=== PATIENT | female | born 1985 | race Caucasian/White ===

== ENCOUNTER 2017-07-07 10:13 | Emergency (ER) | payer OTHER ==
[~2017-07-07] VITALS: Ht 142.2 cm; Wt 63.5 kg
[~2017-07-07 10:13] MED LIST: ACEBUTCAFT PO; BCPs; BIRTH CONTROL; Bactrim Ds Tab1 EACH PO; CEPH500 PO; CETI10 PO; CIPR500 PO; CLIN300 PO; CRUTCH3 USE; CYCL10 PO; Cyclobenzaprine5 MG PO; DIAZ5 PO; DIPH25 PO; GABA100; GABA300 PO; GABA600 PO; HYDACE5 PO; IBUP600 PO; IBUP800; IBUP800 PO; KETO10 PO; MULVITMINE PO; NAPR500 PO; NAPR550 PO; NITR100CA PO; Naprosyn500 MG PO; ONDA4ODT MM; OXYACE5T; OXYACE5T PO; OXYACE7.5T PO; POTCHL10ER PO; PRED10 PO; PRED20 PO; PRENZ PO; PROACE100 PO; PROM25 PO; PROM25S PR; PROP65 PO; Percocet 5-3251 EACH PO; Prednisone20 MG PO; Prednisone50 MG PO; Pyridium200 MG PO; RANI150; RANI150 PO; RXCLIN PO; RXCYCL10 PO; RXHYDMOR2 PO; RXIBUP800 PO; RXNEOPOLHC AS; RXPROACE PO; RXPROM25S PR; RXTRAM50 PO; Robaxin-750750 MG PO; Robaxin500 MG PO; SERT100 PO; SULTRIDS PO; Sprintec1 EACH PO; TRAM50 PO; TRAZ150T57 PO; TRIA80TC TOP; Veetids 500500 MG PO; YAS; YAZ BCP; YOHI5.4; Zoloft25 MG; [UNRECOGNIZED DRUG - REMARK]; [UNRECOGNIZED DRUG - REMARK]
[2017-07-07] MEDS ORDERED: BACL10 PO (11:17)
[2017-07-07] MEDS ORDERED: TOPI50 PO (11:18)
== END 2017-07-07 12:40 | disposition home or self-care (01) ==
LOC: ER 10:13
DX: F07.81 Postconcussional syndrome (principal); J45.909 Unspecified asthma, uncomplicated; Z88.1 Allergy status to other antibiotic agents; Z88.5 Allergy status to narcotic agent; Z79.899 Other long term (current) drug therapy; Z87.891 Personal history of nicotine dependence
CPT/HCPCS: 36415; 70450; 72125; 96374; 96375; 99284; J1100; J1200; J1885; J2765; L0160

== ENCOUNTER → 2017-11-04 | Outpatient (CLI) | payer OTHER ==
[~2017-11-04] MED LIST changes: +BACL10 PO; +TOPI50 PO
[2017-11-04 15:18] LABS: Source, Urine Clean Catch
[2017-11-04 17:52] LABS: Bilirubin, Urine Neg (Neg); Blood, Urine Neg (Neg); Glucose Qualitative, Urine Neg (Neg); Ketones, Urine Neg (Neg); Leukocyte Esterase, Urine 3+ (Neg); Nitrite, Urine Neg (Neg); Protein, Urine Neg (Neg); Specific Gravity, Urine 1.005 (1.003-1.022); Urobilinogen, Urine NORM (Normal)
[2017-11-04 18:16] LABS: Appearance, Urine Cloudy (Clear); Color, Urine Yellow (P-Yellow)
[2017-11-04 18:17] LABS: Bacteria Many /hpf; Red Blood Cells, Urine Not Seen /hpf (0-2); Squamous Epithelial Cells Many /hpf (Few); White Blood Cells, Urine 25-50 /hpf (0-5)
== END | disposition home or self-care (01) ==
LOC: LAB 12:28 → LAB SHORT 12:28
PROVIDERS: Obstetrics & Gynecology
DX: R82.99 Other abnormal findings in urine (principal)
CPT/HCPCS: 81001; 87086

== ENCOUNTER 2018-01-30 11:51 | Emergency (ER) | payer OTHER ==
[~2018-01-30] VITALS: Ht 160 cm; Wt 53.5 kg
[~2018-01-30 11:51] MED LIST changes: +EPIPEN 2-P0.3 MG/0.3 IM
== END 2018-01-30 13:34 | disposition home or self-care (01) ==
LOC: ER 11:51
DX: R51 Headache (principal); Z88.5 Allergy status to narcotic agent; Z88.1 Allergy status to other antibiotic agents; Z79.899 Other long term (current) drug therapy; G43.909 Migraine, unspecified, not intractable, without status migrainosus; J45.909 Unspecified asthma, uncomplicated; Z87.891 Personal history of nicotine dependence
CPT/HCPCS: 93005; 93010; 99283-25

== ENCOUNTER 2018-03-11 09:55 | Emergency (ER) | payer OTHER ==
[~2018-03-11] VITALS: Ht 160 cm; Wt 53.5 kg
[2018-03-11 10:24] LABS: Source, Urine Clean Catch
[2018-03-11 10:35] LABS: Bilirubin, Urine Neg (Neg); Blood, Urine 5+ (Neg); Glucose Qualitative, Urine Neg (Neg); Ketones, Urine Neg (Neg); Leukocyte Esterase, Urine 1+ (Neg); Nitrite, Urine Neg (Neg); Protein, Urine Neg (Neg); Urobilinogen, Urine NORM (Normal)
[2018-03-11 10:49] LABS: Appearance, Urine Hazy (Clear); Color, Urine Yellow (P-Yellow)
[2018-03-11 10:50] LABS: Red Blood Cells, Urine 25-50 /hpf (0-2)
[2018-03-11 10:51] LABS: Bacteria Rare /hpf; Squamous Epithelial Cells Mod /hpf (Few)
[2018-03-11 11:40] LABS: Calcium, Ionized (POC) 1.25 mmol/L (1.10-1.46); Chloride (POC) 114 mmol/L (98-108); Creatinine (POC) 0.6 mg/dL (0.6-1.0); Glucose (ISTAT POC) 80 mg/dL (70-99); Hemoglobin (POC) 11.2 g/dL (12.0-16.0); Potassium (POC) 3.7 mmol/L (3.5-5.5); Sodium (POC) 143 mmol/L (135-148); Total CO2 (POC) 19 mmol/L (21-32)
== END 2018-03-11 12:31 | disposition home or self-care (01) ==
LOC: ER 09:55
PROVIDERS: Physician Assistant
DX: N93.9 Abnormal uterine and vaginal bleeding, unspecified (principal); M54.5 Low back pain; J45.909 Unspecified asthma, uncomplicated; M79.7 Fibromyalgia; Z88.5 Allergy status to narcotic agent; Z88.8 Allergy status to other drugs, medicaments and biological substances; Z87.891 Personal history of nicotine dependence
CPT/HCPCS: 36415; 76830; 76856; 80047; 81001; 81025; 85014; 87086; 99284-25

== ENCOUNTER 2018-03-15 09:22 | Emergency (ER) | payer OTHER ==
[~2018-03-15] VITALS: Ht 144.8 cm; Wt 51.7 kg
[2018-03-15 10:30] LABS: Source, Urine Clean Catch
[2018-03-15 10:33] LABS: BASOPHILS ABSOLUTE AUTO 0.06 K/mm3 (0.00-0.23); BASOPHILS PERCENT AUTO 1 % (0-2); EOSINOPHILS ABSOLUTE AUTO 0.19 K/mm3 (0.00-0.68); EOSINOPHILS PERCENT AUTO 3 % (0-6); Hematocrit 36.6 % (33.0-51.0); Hemoglobin 11.4 g/dL (11.5-16.0); IMMATURE GRAN ABSOLUTE AUTO 0.02 K/mm3 (0.00-0.10); IMMATURE GRAN PERCENT AUTO 0 % (0-1); LYMPHOCYTES ABSOLUTE AUTO 2.97 K/mm3 (0.84-5.20); LYMPHOCYTES PERCENT AUTO 39 % (21-46); MONOCYTES ABSOLUTE AUTO 0.62 K/mm3 (0.16-1.47); MONOCYTES PERCENT AUTO 8 % (4-13); Mean Corpuscular HGB 28.1 pg (26.0-34.0); Mean Corpuscular HGB Conc 31.1 g/dL (31.5-36.5); Mean Corpuscular Volume 90 fL (80-100); Mean Platelet Volume 10.5 fL (9.1-12.4); NEUTROPHILS ABSOLUTE AUTO 3.68 K/mm3 (1.96-9.15); NEUTROPHILS PERCENT AUTO 49 % (41-73); Platelet Count 201 K/mm3 (150-400); RDW Coefficient Variation 14.2 % (11.7-14.2); RDW Standard Deviation 46.1 fL (35.1-46.3); Red Blood Cell Count 4.06 M/mm3 (3.80-5.20); White Blood Cell Count 7.54 K/mm3 (4.00-11.30)
[2018-03-15] MEDS ORDERED: MEDR10 PO (10:40)
[2018-03-15 10:46] LABS: Appearance, Urine Clear (Clear); Bilirubin, Urine Neg (Neg); Blood, Urine 5+ (Neg); Color, Urine Yellow (P-Yellow); Glucose Qualitative, Urine Neg (Neg); Ketones, Urine Neg (Neg); Leukocyte Esterase, Urine 2+ (Neg); Nitrite, Urine Neg (Neg); Protein, Urine Neg (Neg); Urobilinogen, Urine NORM (Normal)
[2018-03-15 10:47] LABS: Alanine Aminotransfer (ALT/SGP 15 U/L (12-78); Albumin, Blood 3.7 g/dL (3.4-5.0); Alk Phos 73 U/L (50-136); Anion Gap 8 mmol/L (6-16); Aspartate Aminotrans (AST/SGOT 12 U/L (12-37); Bilirubin, Total 0.2 mg/dL (0.1-1.0); Blood Urea Nitrogen 19 mg/dL (8-24); Bun/Creatinine Ratio 22.9 (12.0-20.0); CO2, Blood 20 mmol/L (21-32); Calcium, Blood 8.1 mg/dL (8.5-10.1); Chloride, Blood 117 mmol/L (98-108); Creatinine, Blood 0.83 mg/dL (0.40-1.00); Globulin, Blood 3.8 g/dL (2.2-4.0); Glomerular Filtration Rate >60 (60-); Glucose, Blood 76 mg/dL (70-99); Potassium, Blood 3.4 mmol/L (3.5-5.5); Sodium, Blood 145 mmol/L (136-145); Total Protein, Blood 7.5 g/dL (6.4-8.2)
[2018-03-15 11:04] LABS: Bacteria Few /hpf; Squamous Epithelial Cells Mod /hpf (Few)
== END 2018-03-15 11:00 | disposition home or self-care (01) ==
LOC: ER 09:22
PROVIDERS: Internal Medicine
DX: N93.8 Other specified abnormal uterine and vaginal bleeding (principal); Z88.1 Allergy status to other antibiotic agents; Z88.5 Allergy status to narcotic agent; G43.909 Migraine, unspecified, not intractable, without status migrainosus; J45.909 Unspecified asthma, uncomplicated
CPT/HCPCS: 36415; 80053; 81001; 81025; 83690; 85025; 87086; 99283

== ENCOUNTER → 2018-03-17 | Outpatient (CLI) | payer OTHER ==
[~2018-03-17] MED LIST changes: +MEDR10 PO
[2018-03-20 04:11] LABS: CHLAMYDIA TRACHOMATIS, NAA Negative (Negative); HPV 16 Negative (Negative); HPV 18 Negative (Negative); HPV OTHER HR TYPES Positive (Negative); NEISSERIA GONORRHOEAE, NAA Negative (Negative)
== END | disposition home or self-care (01) ==
LOC: LAB 11:11 → LAB SHORT 11:11
PROVIDERS: Obstetrics & Gynecology
DX: Z01.419 Encounter for gynecological examination (general) (routine) without abnormal findings (principal); Z11.3 Encounter for screening for infections with a predominantly sexual mode of transmission
CPT/HCPCS: 87491; 87591; 87624; 87625; G0123

== ENCOUNTER → 2018-03-25 | Outpatient (CLI) | payer OTHER | END | disposition home or self-care (01) | LOC: LAB SHORT 07:25 → PLD 07:25 | DX: N87.0 Mild cervical dysplasia (principal) | CPT/HCPCS: 88305 ==

== ENCOUNTER 2018-06-01 08:11 | Emergency (ER) | payer OTHER ==
[~2018-06-01] VITALS: Ht 142.2 cm; Wt 49.4 kg
[~2018-06-01 08:11] MED LIST changes: +PANT20 PO; +TOPI100 PO
[2018-06-01] MEDS ORDERED: OMEPRAZOLE20 MG PO (08:34)
== END 2018-06-01 09:16 | disposition home or self-care (01) ==
LOC: ER 08:11
DX: M25.511 Pain in right shoulder (principal); J45.909 Unspecified asthma, uncomplicated; G43.909 Migraine, unspecified, not intractable, without status migrainosus; M79.7 Fibromyalgia; Z88.1 Allergy status to other antibiotic agents; Z88.6 Allergy status to analgesic agent
CPT/HCPCS: 73030; 96372; 99283-25; J1885

== ENCOUNTER 2018-08-15 09:01 | Emergency (ER) | payer OTHER ==
[~2018-08-15] VITALS: Ht 142.2 cm; Wt 49.9 kg
[~2018-08-15 09:01] MED LIST changes: +OMEPRAZOLE20 MG PO
[2018-08-15] MEDS ORDERED: IBUP600 PO (11:13)
== END 2018-08-15 11:37 | disposition home or self-care (01) ==
LOC: ER 09:01
DX: M25.552 Pain in left hip (principal); Z88.1 Allergy status to other antibiotic agents; Z88.5 Allergy status to narcotic agent; Z79.899 Other long term (current) drug therapy; J45.909 Unspecified asthma, uncomplicated
CPT/HCPCS: 73502; 99283-25

== ENCOUNTER → 2018-09-16 | Outpatient (CLI) | payer OTHER | END | disposition home or self-care (01) | LOC: LAB SHORT 07:14 → PLD 07:14 | DX: R87.610 Atypical squamous cells of undetermined significance on cytologic smear of cervix (ASC-US) (principal) | CPT/HCPCS: 88305 ==

== ENCOUNTER 2018-11-04 08:33 | Emergency (ER) | payer OTHER ==
[~2018-11-04] VITALS: Ht 142.2 cm; Wt 53.1 kg
[2018-11-04] MEDS ORDERED: PANT20 PO (08:49)
[2018-11-04 08:54] LABS: Source, Urine Clean Catch
[2018-11-04 08:58] LABS: Bilirubin, Urine Neg (Neg); Blood, Urine 5+ (Neg); Glucose Qualitative, Urine Neg (Neg); Ketones, Urine Neg (Neg); Leukocyte Esterase, Urine 1+ (Neg); Nitrite, Urine Neg (Neg); Protein, Urine 2+ (Neg); Urobilinogen, Urine NORM (Normal)
[2018-11-04 09:07] LABS: Color, Urine Red (P-Yellow)
[2018-11-04 09:08] LABS: Appearance, Urine Cloudy (Clear); Bacteria Rare /hpf; Squamous Epithelial Cells Not Seen /hpf (Few); White Blood Cells, Urine Not Seen /hpf (0-5)
[2018-11-04 09:27] LABS: BASOPHILS ABSOLUTE AUTO 0.04 K/mm3 (0.00-0.23); BASOPHILS PERCENT AUTO 1 % (0-2); EOSINOPHILS ABSOLUTE AUTO 0.13 K/mm3 (0.00-0.68); EOSINOPHILS PERCENT AUTO 2 % (0-6); Hemoglobin 12.6 g/dL (11.5-16.0); IMMATURE GRAN ABSOLUTE AUTO 0.02 K/mm3 (0.00-0.10); IMMATURE GRAN PERCENT AUTO 0 % (0-1); LYMPHOCYTES ABSOLUTE AUTO 2.79 K/mm3 (0.84-5.20); LYMPHOCYTES PERCENT AUTO 38 % (21-46); MONOCYTES ABSOLUTE AUTO 0.61 K/mm3 (0.16-1.47); MONOCYTES PERCENT AUTO 8 % (4-13); Mean Corpuscular HGB 29.5 pg (26.0-34.0); Mean Corpuscular HGB Conc 32.3 g/dL (31.5-36.5); Mean Corpuscular Volume 91 fL (80-100); Mean Platelet Volume 10.4 fL (9.1-12.4); NEUTROPHILS ABSOLUTE AUTO 3.85 K/mm3 (1.96-9.15); NEUTROPHILS PERCENT AUTO 52 % (41-73); Platelet Count 201 K/mm3 (150-400); RDW Coefficient Variation 14.4 % (11.7-14.2); RDW Standard Deviation 48.1 fL (35.1-46.3); Red Blood Cell Count 4.27 M/mm3 (3.80-5.20); White Blood Cell Count 7.44 K/mm3 (4.00-11.30)
[2018-11-04 09:43] LABS: Albumin, Blood 3.6 g/dL (3.4-5.0); Albumin/Globulin Ratio 0.9 (0.8-1.8); Anion Gap 6 mmol/L (6-16); Blood Urea Nitrogen 18 mg/dL (8-24); Bun/Creatinine Ratio 23.4 (12.0-20.0); CO2, Blood 26 mmol/L (21-32); Calcium, Blood 8.8 mg/dL (8.5-10.1); Chloride, Blood 109 mmol/L (98-108); Creatinine, Blood 0.77 mg/dL (0.40-1.00); Globulin, Blood 3.9 g/dL (2.2-4.0); Glomerular Filtration Rate >60 (60-); Glucose, Blood 63 mg/dL (70-99); Potassium, Blood 3.5 mmol/L (3.5-5.5); Sodium, Blood 141 mmol/L (136-145); Total Protein, Blood 7.5 g/dL (6.4-8.2)
[2018-11-04 09:44] LABS: Alanine Aminotransfer (ALT/SGP 26 U/L (12-78); Alk Phos 68 U/L (50-136); Aspartate Aminotrans (AST/SGOT 19 U/L (12-37); Bilirubin, Total 0.2 mg/dL (0.1-1.0)
[2018-11-04] MEDS ORDERED: ONDA4ODT MM (11:28)
== END 2018-11-04 11:37 | disposition home or self-care (01) ==
LOC: ER 08:33
PROVIDERS: Emergency Medicine
DX: E16.2 Hypoglycemia, unspecified (principal); R31.9 Hematuria, unspecified; J45.909 Unspecified asthma, uncomplicated; M79.7 Fibromyalgia; Z88.5 Allergy status to narcotic agent; Z88.8 Allergy status to other drugs, medicaments and biological substances; Z79.899 Other long term (current) drug therapy
CPT/HCPCS: 36415; 80053; 81001; 81025; 82947; 85025; 87086; 93005; 93010; 96374; 96375; 99283-25; J1200; J1885; J2765

== ENCOUNTER → 2019-06-08 | Outpatient (CLI) | payer OTHER ==
[~2019-06-08] MED LIST changes: +MELO7.5 PO; +TIZANIDINE HCL4 MG PO
[2019-06-10 04:08] LABS: CHLAMYDIA TRACHOMATIS, NAA Negative (Negative); HPV 16 Negative (Negative); HPV 18 Negative (Negative); HPV OTHER HR TYPES Negative (Negative); NEISSERIA GONORRHOEAE, NAA Negative (Negative)
== END | disposition home or self-care (01) ==
LOC: LAB SHORT 09:49 → LAB 09:49
PROVIDERS: Obstetrics & Gynecology
DX: Z11.3 Encounter for screening for infections with a predominantly sexual mode of transmission (principal); Z87.42 Personal history of other diseases of the female genital tract
CPT/HCPCS: 87491; 87591; 87624; G0123

== ENCOUNTER → 2019-07-16 | Outpatient (CLI) | payer OTHER ==
[~2019-07-16] MED LIST changes: +POTA20PAC PO
[2019-07-17 14:49] LABS: Candida species (DNA Probe) Negative (NEGATIVE); G. vaginalis (DNA Probe) Positive (NEGATIVE); T. vaginalis (DNA Probe) Negative (NEGATIVE)
== END | disposition home or self-care (01) ==
LOC: LAB SHORT 10:15 → LAB 10:15
PROVIDERS: Obstetrics & Gynecology
DX: R10.2 Pelvic and perineal pain (principal)
CPT/HCPCS: 87480; 87510; 87660

== ENCOUNTER 2019-08-22 07:32 | Emergency (ER) | payer OTHER ==
[~2019-08-22] VITALS: Ht 139.7 cm; Wt 49.9 kg
[~2019-08-22 07:32] MED LIST changes: +TIZA4 PO; -TIZANIDINE HCL4 MG PO
[2019-08-22] MEDS ORDERED: MONT10T PO (07:55)
[2019-08-22] MEDS ORDERED: TRAZ50 PO (07:56)
[2019-08-22 08:29] LABS: Source, Urine Voided
[2019-08-22 08:36] LABS: BASOPHILS ABSOLUTE AUTO 0.06 K/mm3 (0.00-0.23); BASOPHILS PERCENT AUTO 1 % (0-2); EOSINOPHILS ABSOLUTE AUTO 0.19 K/mm3 (0.00-0.68); EOSINOPHILS PERCENT AUTO 2 % (0-6); Hematocrit 42.9 % (33.0-51.0); Hemoglobin 13.4 g/dL (11.5-16.0); IMMATURE GRAN ABSOLUTE AUTO 0.03 K/mm3 (0.00-0.10); IMMATURE GRAN PERCENT AUTO 0 % (0-1); LYMPHOCYTES ABSOLUTE AUTO 3.03 K/mm3 (0.84-5.20); LYMPHOCYTES PERCENT AUTO 38 % (21-46); MONOCYTES ABSOLUTE AUTO 0.72 K/mm3 (0.16-1.47); MONOCYTES PERCENT AUTO 9 % (4-13); Mean Corpuscular HGB 28.8 pg (26.0-34.0); Mean Corpuscular HGB Conc 31.2 g/dL (31.5-36.5); Mean Corpuscular Volume 92 fL (80-100); Mean Platelet Volume 10.5 fL (9.1-12.4); NEUTROPHILS ABSOLUTE AUTO 3.95 K/mm3 (1.96-9.15); NEUTROPHILS PERCENT AUTO 49 % (41-73); Platelet Count 210 K/mm3 (150-400); RDW Coefficient Variation 14.6 % (11.7-14.2); RDW Standard Deviation 49.4 fL (35.1-46.3); Red Blood Cell Count 4.65 M/mm3 (3.80-5.20); White Blood Cell Count 7.98 K/mm3 (4.00-11.30)
[2019-08-22 08:37] LABS: Bilirubin, Urine Neg (Neg); Blood, Urine 1+ (Neg); Glucose Qualitative, Urine Neg (Neg); Ketones, Urine Neg (Neg); Leukocyte Esterase, Urine 3+ (Neg); Nitrite, Urine Neg (Neg); Protein, Urine Neg (Neg); Specific Gravity, Urine 1.015 (1.003-1.022); Urobilinogen, Urine 1+ (Normal)
[2019-08-22 08:47] LABS: Appearance, Urine Hazy (Clear); Bacteria Few /hpf; Color, Urine Yellow (P-Yellow); Red Blood Cells, Urine 0-2 /hpf (0-2); Squamous Epithelial Cells Few /hpf (Few)
[2019-08-22 08:55] LABS: Beta HCG, Quantitative, Serum <1 mIU/mL (0-3)
[2019-08-22 08:56] LABS: Alanine Aminotransfer (ALT/SGP 22 U/L (12-78); Alk Phos 73 U/L (50-136); Anion Gap 7 mmol/L (6-16); Aspartate Aminotrans (AST/SGOT 13 U/L (12-37); Bilirubin, Total 0.3 mg/dL (0.1-1.0); Blood Urea Nitrogen 26 mg/dL (8-24); Bun/Creatinine Ratio 32.9 (12.0-20.0); CO2, Blood 21 mmol/L (21-32); Chloride, Blood 112 mmol/L (98-108); Creatinine, Blood 0.79 mg/dL (0.40-1.00); Globulin, Blood 4.1 g/dL (2.2-4.0); Glomerular Filtration Rate >60 (60-); Glucose, Blood 72 mg/dL (70-99); Potassium, Blood 3.7 mmol/L (3.5-5.5); Sodium, Blood 140 mmol/L (136-145); Total Protein, Blood 8.1 g/dL (6.4-8.2)
[2019-09-27] MEDS ORDERED: ERGO400 PO (14:20)
== END 2019-08-22 11:10 | disposition home or self-care (01) ==
LOC: ER 07:32
PROVIDERS: Emergency Medicine
DX: R10.2 Pelvic and perineal pain (principal); Z88.0 Allergy status to penicillin; Z88.1 Allergy status to other antibiotic agents; Z88.5 Allergy status to narcotic agent; J45.909 Unspecified asthma, uncomplicated; Z79.899 Other long term (current) drug therapy; M79.7 Fibromyalgia; Z87.891 Personal history of nicotine dependence
CPT/HCPCS: 36415; 76830; 76856; 80053; 81001; 84702; 85025; 87086; 96361; 96374; 96375; 99284-25; J1885; J2405; J7030

== ENCOUNTER 2019-10-04 07:41 | Day surgery (SDC) | payer OTHER ==
[~2019-10-04] VITALS: Ht 144.8 cm; Wt 54.3 kg
[~2019-10-04 07:41] MED LIST changes: +ERGO400 PO; +MONT10T PO; +TRAZ50 PO
--- NOTE | 2019-10-04 07:57 | NUR ---
History, Chart, Medications and Allergies reviewed before start of procedure. Amoxicillin removed from allergy list per patient request. Patient denies allergy to amoxicillin. Patient confirms NPO status and agrees with scheduled surgery. Patient States Post-Procedure ride home has been arranged with her friend, Kathleen.
--- NOTE | 2019-10-04 09:19 | NUR ---
NOSE RING TAPED AND JEWELRY WAIVER SIGNED. Surgical site prepped with 2% Chlorhexidine cloth wipe.
--- NOTE | 2019-10-04 11:47 | NUR ---
10/04/19 1147 Aurelio Carr WILSON CATH PLACED INTRA-OP PER DR. DURON
--- NOTE | 2019-10-04 19:17 | NUR ---
SHIFT SUMMARY PT HAS BEEN DROWSY BUT WOKE FOR DINNER AND DID VERY WELL. 1 OXY GIVEN FOR PAIN. NO VAG BLEEDING. STERI STRIPS WNL.
--- NOTE | 2019-10-05 01:13 | NUR ---
Aleyda has been quite painful tonight, getting only moderate relief from oxycodone, toradol and tylenol. Then, also got quite uncomfortable with heartburn after eating jello at HS. She did, however, get oob to sink and chair for over one hour around 2400. She is very worried about having no help at home for the first couple of days.
[2019-10-05 05:06] LABS: BASOPHILS ABSOLUTE AUTO 0.02 K/mm3 (0.00-0.23); BASOPHILS PERCENT AUTO 0 % (0-2); EOSINOPHILS ABSOLUTE AUTO 0.06 K/mm3 (0.00-0.68); EOSINOPHILS PERCENT AUTO 1 % (0-6); Hematocrit 33.3 % (33.0-51.0); Hemoglobin 10.5 g/dL (11.5-16.0); IMMATURE GRAN ABSOLUTE AUTO 0.03 K/mm3 (0.00-0.10); IMMATURE GRAN PERCENT AUTO 0 % (0-1); LYMPHOCYTES ABSOLUTE AUTO 2.41 K/mm3 (0.84-5.20); LYMPHOCYTES PERCENT AUTO 24 % (21-46); MONOCYTES ABSOLUTE AUTO 0.67 K/mm3 (0.16-1.47); MONOCYTES PERCENT AUTO 7 % (4-13); Mean Corpuscular HGB 29.1 pg (26.0-34.0); Mean Corpuscular HGB Conc 31.5 g/dL (31.5-36.5); Mean Corpuscular Volume 92 fL (80-100); Mean Platelet Volume 10.9 fL (9.1-12.4); NEUTROPHILS ABSOLUTE AUTO 6.93 K/mm3 (1.96-9.15); NEUTROPHILS PERCENT AUTO 69 % (41-73); Platelet Count 151 K/mm3 (150-400); RDW Coefficient Variation 13.2 % (11.7-14.2); RDW Standard Deviation 44.1 fL (35.1-46.3); Red Blood Cell Count 3.61 M/mm3 (3.80-5.20); White Blood Cell Count 10.12 K/mm3 (4.00-11.30)
--- NOTE | 2019-10-05 06:46 | NUR ---
DIE CAST TECHNICIAN SUMMARY Patient slept in 1-2 hour spurts all night. C/O pressure lower abd/pelvic area. K pad and IV toradol seemed to do much better for her than the oxycodone. Hope catheter pulled at 0500, voided 200ml clear urine immediately, and ambulated and sat up in chair. Very pleased that she is feeling so much better since getting her hope out. Looking forward to possible discharge later today.
[2019-10-05] MEDS ORDERED: ACET325 PO (08:50)
[2019-10-05] MEDS ORDERED: IBUP800 PO (08:51)
[2019-10-05] MEDS ORDERED: DOCU100 PO (08:51)
[2019-10-05] MEDS ORDERED: OXYC5 PO (08:52)
--- NOTE | 2019-10-05 15:51 | NUR ---
DISCHARGE PT ESCORTED OUT VIA W/C. EATING/DRINKING/VOIDING WELL. PASSING GAS. PAIN MANAGED. PLEASANT AND SOFT SPOKEN.
== END 2019-10-05 15:51 | disposition home or self-care (01) ==
LOC: ORSCMMR 07:41 → ORD 09:00 → ORSCMMR 09:00 → SURS 11:58 → ORSCMMR 11:58 → SURS 10-05 15:51 → ORSCMMR 10-05 15:51
PROVIDERS: Obstetrics & Gynecology
PROC: 0U5F4ZZ Destruction of Cul-de-sac, Percutaneous Endoscopic Approach (ICD-10-PCS; principal; 2019-10-04 09:00)
PROC: 0UT0FZZ Resection of Right Ovary, Via Natural or Artificial Opening With Percutaneous Endoscopic Assistance (ICD-10-PCS; principal; 2019-10-04 09:00)
PROC: 0UT9FZZ Resection of Uterus, Via Natural or Artificial Opening With Percutaneous Endoscopic Assistance (ICD-10-PCS; principal; 2019-10-04 09:00)
DX: N80.3 Endometriosis of pelvic peritoneum (principal); R87.611 Atypical squamous cells cannot exclude high grade squamous intraepithelial lesion on cytologic smear of cervix (ASC-H); R10.2 Pelvic and perineal pain; N94.6 Dysmenorrhea, unspecified; N83.291 Other ovarian cyst, right side; N72 Inflammatory disease of cervix uteri; K21.9 Gastro-esophageal reflux disease without esophagitis; M79.7 Fibromyalgia; Z79.899 Other long term (current) drug therapy
CPT/HCPCS: 36415; 85025; 88307; A9270; C9113; J0171; J0690; J1100; J1170; J1885; J2250; J2405; J2704; J2765; J3010; J7120; U0002

== ENCOUNTER 2021-02-14 09:16 | Day surgery (SDC) | payer OTHER ==
[~2021-02-14] VITALS: Ht 144.8 cm; Wt 65.1 kg
[~2021-02-14 09:16] MED LIST changes: +ACET325 PO; +CITALOPRAM HBR10 MG PO; +DOCU100 PO; +ESCI20 PO; +OXYC5 PO
--- NOTE | 2021-02-14 10:01 | NUR ---
Ambulatory in Day Surgery. History, Chart, Medications and Allergies reviewed before start of procedure. Lungs clear T/O to Auscultation. Patient confirms NPO status and agrees with scheduled surgery. Pre-Op teaching done. Pt verbalizes understanding. Patient States Post-Procedure ride home has been arranged WITH PT'S DAD.
--- NOTE | 2021-02-14 12:12 | NUR ---
REPORT GIVEN TO Bjorn ESCALANTE.
--- NOTE | 2021-02-14 13:15 | NUR ---
Patient up to Ambulate independently. Gait steady. Discharge instructions reviewed with patient. Patient verbalizes understanding. Copy given to patient to take home. Dressing to procedure site clean, dry, intact with SMALL AMOUNT OF drainage, NOT ANYTHING NEW SINCE ASSUMING CARE, swelling, erythema or bruising noted. Patient States Post-Procedure ride home has been arranged. PT'S DAD IN UNIT. Discharged via wheelchair to private car for ride home.
== END 2021-02-14 13:15 | disposition home or self-care (01) ==
LOC: ORSCMMR 09:16 → ORD 10:30 → ORSCMMR 13:15
PROVIDERS: Obstetrics & Gynecology
PROC: 0UB14ZZ Excision of Left Ovary, Percutaneous Endoscopic Approach (ICD-10-PCS; principal; 2021-02-14 10:30)
DX: N80.9 Endometriosis, unspecified (principal); N83.202 Unspecified ovarian cyst, left side; K21.9 Gastro-esophageal reflux disease without esophagitis; F41.8 Other specified anxiety disorders; M79.7 Fibromyalgia; E66.9 Obesity, unspecified; Z68.32 Body mass index [BMI] 32.0-32.9, adult; Z79.899 Other long term (current) drug therapy
CPT/HCPCS: 88305; A9270; J1100; J1885; J2250; J2405; J2704; J3010; J7120

== ENCOUNTER 2021-08-13 02:59 | Emergency (ER) | payer OTHER ==
[~2021-08-13] VITALS: Ht 144.8 cm; Wt 59.0 kg
[2021-08-13 04:00] LABS: Source, Urine Voided
[2021-08-13 04:16] LABS: Bilirubin, Urine Neg (Neg); Blood, Urine Neg (Neg); Glucose Qualitative, Urine Neg (Neg); Ketones, Urine Neg (Neg); Leukocyte Esterase, Urine Neg (Neg); Nitrite, Urine Neg (Neg); Protein, Urine 1+ (Neg); Urobilinogen, Urine NORM (Normal)
[2021-08-13 04:22] LABS: Appearance, Urine Clear (Clear); Color, Urine Yellow (P-Yellow)
[2021-08-13] MEDS ORDERED: BACL10 PO (07:19)
[2021-08-13] MEDS ORDERED: CLIMARA1 EACH TOP (07:19)
[2021-08-13] MEDS ORDERED: HYDPAM50 PO (07:20)
[2021-08-13 08:02] LABS: Influenza A, PCR NEGATIVE (NEGATIVE); Influenza B, PCR NEGATIVE (NEGATIVE); Resp Syncytial Virus, PCR NEGATIVE (NEGATIVE); SARS-Cov-2 (COVID-19) PCR, MMC NEGATIVE (NEGATIVE)
[2021-08-13] MEDS ORDERED: IBUP800 PO (08:49)
[2021-08-13] MEDS ORDERED: ONDA4ODT MM (08:49)
== END 2021-08-13 09:01 | disposition home or self-care (01) ==
LOC: ER 02:59
PROVIDERS: Emergency Medicine; Student in an Organized Health Care Education/Training Program
DX: R10.9 Unspecified abdominal pain (principal); R11.2 Nausea with vomiting, unspecified; R42 Dizziness and giddiness; R30.0 Dysuria; R39.15 Urgency of urination; J45.909 Unspecified asthma, uncomplicated; Z79.899 Other long term (current) drug therapy; Z88.1 Allergy status to other antibiotic agents; Z20.822 Contact with and (suspected) exposure to COVID-19
CPT/HCPCS: 0241U; 82947; 93005; 93010; A9270

== ENCOUNTER → 2021-08-16 | Outpatient (CLI) | payer OTHER ==
[~2021-08-16] MED LIST changes: +CLIMARA1 EACH TOP; +HYDPAM50 PO
== END | disposition home or self-care (01) ==
LOC: LAB 11:55 → LAB SHORT 11:55
DX: J36 Peritonsillar abscess (principal)
CPT/HCPCS: 87081; 87147

== ENCOUNTER 2021-10-05 09:34 | Emergency (ER) | payer OTHER ==
[~2021-10-05] VITALS: Ht 142.2 cm; Wt 59.0 kg
[2021-10-05 10:29] LABS: BASOPHILS ABSOLUTE AUTO 0.04 K/mm3 (0.00-0.23); BASOPHILS PERCENT AUTO 0 % (0-2); EOSINOPHILS ABSOLUTE AUTO 0.12 K/mm3 (0.00-0.68); EOSINOPHILS PERCENT AUTO 1 % (0-6); Hematocrit 38.6 % (33.0-51.0); IMMATURE GRAN ABSOLUTE AUTO 0.03 K/mm3 (0.00-0.10); IMMATURE GRAN PERCENT AUTO 0 % (0-1); LYMPHOCYTES ABSOLUTE AUTO 2.31 K/mm3 (0.84-5.20); LYMPHOCYTES PERCENT AUTO 24 % (21-46); MONOCYTES ABSOLUTE AUTO 0.55 K/mm3 (0.16-1.47); MONOCYTES PERCENT AUTO 6 % (4-13); Mean Corpuscular HGB 30.9 pg (26.0-34.0); Mean Corpuscular HGB Conc 33.7 g/dL (31.5-36.5); Mean Corpuscular Volume 92 fL (80-100); Mean Platelet Volume 10.4 fL (9.1-12.4); NEUTROPHILS ABSOLUTE AUTO 6.63 K/mm3 (1.96-9.15); NEUTROPHILS PERCENT AUTO 69 % (41-73); Platelet Count 226 K/mm3 (150-400); RDW Standard Deviation 43.1 fL (35.1-46.3); Red Blood Cell Count 4.21 M/mm3 (3.80-5.20); White Blood Cell Count 9.68 K/mm3 (4.00-11.30)
[2021-10-05 10:55] LABS: Albumin, Blood 3.5 g/dL (3.4-5.0); Albumin/Globulin Ratio 0.9 (0.8-1.8); Bilirubin, Total 0.4 mg/dL (0.1-1.0); Calcium, Blood 8.6 mg/dL (8.5-10.1); Creatinine, Blood 0.66 mg/dL (0.40-1.00); Globulin, Blood 3.8 g/dL (2.2-4.0); Potassium, Blood 3.3 mmol/L (3.5-5.5); Total Protein, Blood 7.3 g/dL (6.4-8.2)
== END 2021-10-05 16:03 | disposition home or self-care (01) ==
LOC: ER 09:34
PROVIDERS: Physician Assistant
DX: R07.89 Other chest pain (principal); Z88.1 Allergy status to other antibiotic agents; Z79.899 Other long term (current) drug therapy
CPT/HCPCS: 80053; 84484; 85025; 93005; 93010

== ENCOUNTER 2022-06-20 14:17 | Emergency (ER) | payer OTHER ==
[~2022-06-20] VITALS: Ht 165.1 cm; Wt 72.6 kg
[2022-06-20 14:58] VITALS: BP 127/84
[2022-06-20 15:13] LABS: BASOPHILS ABSOLUTE AUTO 0.04 K/mm3 (0.00-0.23); BASOPHILS PERCENT AUTO 1 % (0-2); EOSINOPHILS ABSOLUTE AUTO 0.23 K/mm3 (0.00-0.68); EOSINOPHILS PERCENT AUTO 3 % (0-6); Hematocrit 38.7 % (33.0-51.0); IMMATURE GRAN ABSOLUTE AUTO 0.02 K/mm3 (0.00-0.10); IMMATURE GRAN PERCENT AUTO 0 % (0-1); LYMPHOCYTES ABSOLUTE AUTO 3.18 K/mm3 (0.84-5.20); LYMPHOCYTES PERCENT AUTO 39 % (21-46); MONOCYTES ABSOLUTE AUTO 0.59 K/mm3 (0.16-1.47); MONOCYTES PERCENT AUTO 7 % (4-13); Mean Corpuscular HGB 30.4 pg (26.0-34.0); Mean Corpuscular HGB Conc 33.6 g/dL (31.5-36.5); Mean Corpuscular Volume 91 fL (80-100); NEUTROPHILS ABSOLUTE AUTO 4.13 K/mm3 (1.96-9.15); NEUTROPHILS PERCENT AUTO 51 % (41-73); Platelet Count 198 K/mm3 (150-400); RDW Coefficient Variation 12.9 % (11.7-14.2); RDW Standard Deviation 42.1 fL (35.1-46.3); Red Blood Cell Count 4.27 M/mm3 (3.80-5.20); White Blood Cell Count 8.19 K/mm3 (4.00-11.30)
[2022-06-20 15:46] LABS: Albumin, Blood 3.4 g/dL (3.4-5.0); Albumin/Globulin Ratio 0.9 (0.8-1.8); Bilirubin, Total 0.5 mg/dL (0.1-1.0); Bun/Creatinine Ratio 14.4 (12.0-20.0); Calcium, Blood 8.5 mg/dL (8.5-10.1); Creatinine, Blood 0.84 mg/dL (0.40-1.00); Globulin, Blood 3.7 g/dL (2.2-4.0); Potassium, Blood 3.5 mmol/L (3.5-5.5); Total Protein, Blood 7.1 g/dL (6.4-8.2)
[2022-06-20] MEDS ORDERED: CYCL10 PO (16:35)
== END 2022-06-20 16:49 | disposition home or self-care (01) ==
LOC: ER 14:17
PROVIDERS: Physician Assistant
DX: M54.50 Low back pain, unspecified (principal); G89.29 Other chronic pain; Z88.1 Allergy status to other antibiotic agents; Z79.899 Other long term (current) drug therapy; G43.909 Migraine, unspecified, not intractable, without status migrainosus; J45.909 Unspecified asthma, uncomplicated
CPT/HCPCS: 80053; 85025; 96374; 99283-25; A9270; J1885

== ENCOUNTER 2022-06-28 03:46 | Emergency (ER) | payer OTHER ==
[~2022-06-28] VITALS: Ht 144.8 cm; Wt 63.5 kg
[2022-06-28 04:23] LABS: BASOPHILS ABSOLUTE AUTO 0.04 K/mm3 (0.00-0.23); BASOPHILS PERCENT AUTO 0 % (0-2); EOSINOPHILS ABSOLUTE AUTO 0.13 K/mm3 (0.00-0.68); EOSINOPHILS PERCENT AUTO 1 % (0-6); Hematocrit 42.3 % (33.0-51.0); Hemoglobin 14.2 g/dL (11.5-16.0); IMMATURE GRAN ABSOLUTE AUTO 0.06 K/mm3 (0.00-0.10); IMMATURE GRAN PERCENT AUTO 1 % (0-1); LYMPHOCYTES ABSOLUTE AUTO 1.61 K/mm3 (0.84-5.20); LYMPHOCYTES PERCENT AUTO 16 % (21-46); MONOCYTES ABSOLUTE AUTO 0.68 K/mm3 (0.16-1.47); MONOCYTES PERCENT AUTO 7 % (4-13); Mean Corpuscular HGB 30.3 pg (26.0-34.0); Mean Corpuscular HGB Conc 33.6 g/dL (31.5-36.5); Mean Corpuscular Volume 90 fL (80-100); Mean Platelet Volume 10.1 fL (9.1-12.4); NEUTROPHILS ABSOLUTE AUTO 7.76 K/mm3 (1.96-9.15); NEUTROPHILS PERCENT AUTO 75 % (41-73); Platelet Count 219 K/mm3 (150-400); RDW Coefficient Variation 13.1 % (11.7-14.2); RDW Standard Deviation 42.9 fL (35.1-46.3); Red Blood Cell Count 4.68 M/mm3 (3.80-5.20); White Blood Cell Count 10.28 K/mm3 (4.00-11.30)
[2022-06-28 04:43] LABS: Albumin, Blood 3.8 g/dL (3.4-5.0); Albumin/Globulin Ratio 0.9 (0.8-1.8); Bilirubin, Total 0.5 mg/dL (0.1-1.0); Bun/Creatinine Ratio 18.7 (12.0-20.0); Calcium, Blood 9.3 mg/dL (8.5-10.1); Creatinine, Blood 0.75 mg/dL (0.40-1.00); Globulin, Blood 4.1 g/dL (2.2-4.0); Potassium, Blood 3.8 mmol/L (3.5-5.5); Total Protein, Blood 7.9 g/dL (6.4-8.2)
[2022-06-28 06:12] VITALS: BP 110/65
[2022-06-28] MEDS ORDERED: ONDA4ODT MM (06:37)
== END 2022-06-28 06:49 | disposition home or self-care (01) ==
LOC: ER 03:46
PROVIDERS: Student in an Organized Health Care Education/Training Program
DX: R07.89 Other chest pain (principal); R11.2 Nausea with vomiting, unspecified; J45.909 Unspecified asthma, uncomplicated; Z88.1 Allergy status to other antibiotic agents; Z79.899 Other long term (current) drug therapy
CPT/HCPCS: 71046; 80053; 83690; 84484; 85025; 93005; 93010; J1885

== ENCOUNTER 2022-07-26 06:46 | Emergency (ER) | payer OTHER ==
[~2022-07-26] VITALS: Ht 142.2 cm; Wt 63.5 kg
[2022-07-26 07:23] LABS: BASOPHILS ABSOLUTE AUTO 0.04 K/mm3 (0.00-0.23); BASOPHILS PERCENT AUTO 1 % (0-2); EOSINOPHILS ABSOLUTE AUTO 0.22 K/mm3 (0.00-0.68); EOSINOPHILS PERCENT AUTO 3 % (0-6); Hematocrit 38.9 % (33.0-51.0); Hemoglobin 13.2 g/dL (11.5-16.0); IMMATURE GRAN ABSOLUTE AUTO 0.02 K/mm3 (0.00-0.10); IMMATURE GRAN PERCENT AUTO 0 % (0-1); LYMPHOCYTES ABSOLUTE AUTO 2.42 K/mm3 (0.84-5.20); LYMPHOCYTES PERCENT AUTO 35 % (21-46); MONOCYTES ABSOLUTE AUTO 0.57 K/mm3 (0.16-1.47); MONOCYTES PERCENT AUTO 8 % (4-13); Mean Corpuscular HGB 30.8 pg (26.0-34.0); Mean Corpuscular HGB Conc 33.9 g/dL (31.5-36.5); Mean Corpuscular Volume 91 fL (80-100); NEUTROPHILS PERCENT AUTO 53 % (41-73); Platelet Count 219 K/mm3 (150-400); RDW Coefficient Variation 12.6 % (11.7-14.2); RDW Standard Deviation 41.6 fL (35.1-46.3); Red Blood Cell Count 4.29 M/mm3 (3.80-5.20); White Blood Cell Count 6.97 K/mm3 (4.00-11.30)
[2022-07-26 07:44] LABS: Albumin, Blood 3.5 g/dL (3.4-5.0); Albumin/Globulin Ratio 0.9 (0.8-1.8); Bilirubin, Total 0.4 mg/dL (0.1-1.0); Bun/Creatinine Ratio 18.1 (12.0-20.0); Calcium, Blood 8.5 mg/dL (8.5-10.1); Creatinine, Blood 0.72 mg/dL (0.40-1.00); Globulin, Blood 3.8 g/dL (2.2-4.0); Potassium, Blood 3.6 mmol/L (3.5-5.5); Total Protein, Blood 7.3 g/dL (6.4-8.2)
[2022-07-26 08:44] VITALS: BP 112/60
== END 2022-07-26 08:50 | disposition home or self-care (01) ==
LOC: ER 06:46
PROVIDERS: Emergency Medicine
DX: M25.572 Pain in left ankle and joints of left foot (principal); M25.571 Pain in right ankle and joints of right foot; J45.909 Unspecified asthma, uncomplicated; Z88.1 Allergy status to other antibiotic agents; Z79.899 Other long term (current) drug therapy
CPT/HCPCS: 80053; 84703; 85025; 93970; 99284-25; A9270

== ENCOUNTER → 2023-03-24 | Outpatient (CLI) | payer OTHER ==
[2023-03-24 19:42] LABS: BASOPHILS ABSOLUTE AUTO 0.04 K/mm3 (0.00-0.23); BASOPHILS PERCENT AUTO 1 % (0-2); EOSINOPHILS ABSOLUTE AUTO 0.11 K/mm3 (0.00-0.68); EOSINOPHILS PERCENT AUTO 1 % (0-6); Hematocrit 47.1 % (33.0-51.0); Hemoglobin 16.5 g/dL (11.5-16.0); IMMATURE GRAN ABSOLUTE AUTO 0.02 K/mm3 (0.00-0.10); IMMATURE GRAN PERCENT AUTO 0 % (0-1); LYMPHOCYTES ABSOLUTE AUTO 2.81 K/mm3 (0.84-5.20); LYMPHOCYTES PERCENT AUTO 36 % (21-46); MONOCYTES ABSOLUTE AUTO 0.45 K/mm3 (0.16-1.47); MONOCYTES PERCENT AUTO 6 % (4-13); Mean Corpuscular HGB 30.2 pg (26.0-34.0); Mean Corpuscular Volume 86 fL (80-100); Mean Platelet Volume 9.9 fL (9.1-12.4); NEUTROPHILS ABSOLUTE AUTO 4.41 K/mm3 (1.96-9.15); NEUTROPHILS PERCENT AUTO 56 % (41-73); Platelet Count 313 K/mm3 (150-400); RDW Standard Deviation 40.1 fL (35.1-46.3); Red Blood Cell Count 5.46 M/mm3 (3.80-5.20); White Blood Cell Count 7.84 K/mm3 (4.00-11.30)
[2023-03-24 20:11] LABS: Albumin, Blood 4.2 g/dL (3.4-5.0); Albumin/Globulin Ratio 0.9 (0.8-1.8); Bilirubin, Total 0.6 mg/dL (0.1-1.0); Bun/Creatinine Ratio 15.7 (12.0-20.0); Calcium, Blood 9.9 mg/dL (8.5-10.1); Creatinine, Blood 0.89 mg/dL (0.40-1.00); Globulin, Blood 4.7 g/dL (2.2-4.0); Magnesium, Blood 2.1 mg/dL (1.6-2.4); Potassium, Blood 3.2 mmol/L (3.5-5.5); Total Protein, Blood 8.9 g/dL (6.4-8.2)
== END | disposition home or self-care (01) ==
LOC: LAB SHORT 18:58 → LAB 18:58
PROVIDERS: Physician Assistant Medical
DX: R06.00 Dyspnea, unspecified (principal); R00.2 Palpitations
CPT/HCPCS: 80053; 83735; 85025

== ENCOUNTER 2023-05-17 12:32 | Emergency (ER) | payer OTHER ==
[~2023-05-17] VITALS: Ht 144.8 cm; Wt 63.5 kg
[~2023-05-17 12:32] MED LIST changes: +BENZ100A PO
[2023-05-17 12:39] VITALS: BP 109/69
[2023-05-17] MEDS ORDERED: RX Prepack Albuterol 1 PREPACK/6.7 GM INH UD ONE (14:30)
== END 2023-05-17 14:40 | disposition home or self-care (01) ==
LOC: ER 12:32
DX: R05.3 Chronic cough (principal); R09.82 Postnasal drip; Z88.1 Allergy status to other antibiotic agents; Z79.899 Other long term (current) drug therapy; G43.909 Migraine, unspecified, not intractable, without status migrainosus; J45.909 Unspecified asthma, uncomplicated
CPT/HCPCS: 71046; 99283-25; A9270

== ENCOUNTER → 2023-07-17 | Outpatient (CLI) | payer OTHER ==
[2023-07-17 15:53] LABS: Bacterial Vaginosis PCR Negative (NEGATIVE); Candida Group, PCR NOT DETECTED (NOT DETECT)
[2023-07-17 15:54] LABS: Candida glabrata-krusei, PCR DETECTED (NOT DETECT)
[2023-07-19 07:24] LABS: APTIMA MEDIA TYPE Unisex Swab; C. TRACHOMATIS BY TMA Negative (Negative); N. GONORRHOEAE BY TMA Negative (Negative); SPECIMEN SOURCE Vaginal
== END ==
LOC: LAB 13:46 → LAB SHORT 13:46
PROVIDERS: Advanced Practice Midwife
DX: N76.0 Acute vaginitis (principal); Z11.3 Encounter for screening for infections with a predominantly sexual mode of transmission
CPT/HCPCS: 87481; 87491; 87591; 87661; 87801

== ENCOUNTER 2023-08-07 15:11 | Emergency (ER) | payer OTHER ==
[~2023-08-07] VITALS: Ht 144.8 cm; Wt 66.7 kg
[2023-08-07] MEDS ORDERED: NS 1,000 ML IV SCH (15:20)
[2023-08-07 15:39] LABS: BASOPHILS ABSOLUTE AUTO 0.03 K/mm3 (0.00-0.23); BASOPHILS PERCENT AUTO 0 % (0-2); EOSINOPHILS ABSOLUTE AUTO 0.06 K/mm3 (0.00-0.68); EOSINOPHILS PERCENT AUTO 1 % (0-6); Hematocrit 43.8 % (33.0-51.0); IMMATURE GRAN ABSOLUTE AUTO 0.02 K/mm3 (0.00-0.10); IMMATURE GRAN PERCENT AUTO 0 % (0-1); LYMPHOCYTES ABSOLUTE AUTO 2.22 K/mm3 (0.84-5.20); LYMPHOCYTES PERCENT AUTO 30 % (21-46); MONOCYTES ABSOLUTE AUTO 0.43 K/mm3 (0.16-1.47); MONOCYTES PERCENT AUTO 6 % (4-13); Mean Corpuscular HGB 29.9 pg (26.0-34.0); Mean Corpuscular HGB Conc 34.2 g/dL (31.5-36.5); Mean Corpuscular Volume 87 fL (80-100); Mean Platelet Volume 10.2 fL (9.1-12.4); NEUTROPHILS ABSOLUTE AUTO 4.72 K/mm3 (1.96-9.15); NEUTROPHILS PERCENT AUTO 63 % (41-73); Platelet Count 256 K/mm3 (150-400); RDW Coefficient Variation 13.2 % (11.7-14.2); RDW Standard Deviation 42.2 fL (35.1-46.3); Red Blood Cell Count 5.02 M/mm3 (3.80-5.20); White Blood Cell Count 7.48 K/mm3 (4.00-11.30)
[2023-08-07 15:56] LABS: Albumin, Blood 3.9 g/dL (3.4-5.0); Albumin/Globulin Ratio 0.9 (0.8-1.8); Bilirubin, Total 0.6 mg/dL (0.1-1.0); Bun/Creatinine Ratio 19.4 (12.0-20.0); Calcium, Blood 9.4 mg/dL (8.5-10.1); Creatinine, Blood 0.88 mg/dL (0.40-1.00); Globulin, Blood 4.2 g/dL (2.2-4.0); Magnesium, Blood 2.2 mg/dL (1.6-2.4); Potassium, Blood 3.4 mmol/L (3.5-5.5); Total Protein, Blood 8.1 g/dL (6.4-8.2)
[2023-08-07] MEDS ORDERED: Ondansetron HCl 2 MG / ML 2ML Vial IV ONE (16:05)
[2023-08-07 18:22] LABS: Source, Urine Clean Catch
[2023-08-07 18:25] LABS: Appearance, Urine Clear (Clear); Bilirubin, Urine Neg (Neg); Blood, Urine Neg (Neg); Glucose Qualitative, Urine Neg (Neg); Ketones, Urine 2+ (Neg); Leukocyte Esterase, Urine Neg (Neg); Nitrite, Urine Neg (Neg); Protein, Urine Neg (Neg); Specific Gravity, Urine 1.005 (1.003-1.022); Urobilinogen, Urine NORM (Normal)
[2023-08-07 18:30] LABS: Color, Urine Pale Yellow (P-Yellow)
[2023-08-07] MEDS ORDERED: RX Prepack 2 Tabs Ondansetron ODT 4MG UD ONE (18:50)
[2023-08-07] MEDS ORDERED: ONDA4 PO (18:51)
[2023-08-07 19:10] VITALS: BP 118/89
== END 2023-08-07 19:11 | disposition home or self-care (01) ==
LOC: ER 15:11
PROVIDERS: Physician Assistant; Student in an Organized Health Care Education/Training Program
DX: K52.9 Noninfective gastroenteritis and colitis, unspecified (principal); J45.909 Unspecified asthma, uncomplicated; G43.909 Migraine, unspecified, not intractable, without status migrainosus; Z79.899 Other long term (current) drug therapy; Z79.818 Long term (current) use of other agents affecting estrogen receptors and estrogen levels; Z88.1 Allergy status to other antibiotic agents
CPT/HCPCS: 74177; 80053; 81003; 83690; 83735; 85025; 96361; 96374-59; 99284-25; A9270; J2405; J7030; Q9967

== ENCOUNTER 2023-09-27 19:34 | Emergency (ER) | payer OTHER ==
[~2023-09-27] VITALS: Ht 144.8 cm; Wt 65.8 kg
[~2023-09-27 19:34] MED LIST changes: +ONDA4 PO
[2023-09-27 20:08] VITALS: BP 97/69
[2023-09-27] MEDS ORDERED: CEFUROXIME IM ONE (20:10)
[2023-09-27] MEDS ORDERED: CEFU500T30 PO (20:12)
[2023-09-27] MEDS ORDERED: ONDA4 PO (20:12)
[2023-09-27] MEDS ORDERED: Cefuroxime Axetil 250 MG Tab PO ONE (20:50)
[2023-09-30] MEDS ORDERED: SULTRIDS PO (21:48)
== END 2023-09-27 21:48 | disposition home or self-care (01) ==
LOC: ER 19:34
DX: S80.211A Abrasion, right knee, initial encounter (principal); L03.115 Cellulitis of right lower limb; J45.909 Unspecified asthma, uncomplicated; G43.909 Migraine, unspecified, not intractable, without status migrainosus; W19.XXXA Unspecified fall, initial encounter; Z79.899 Other long term (current) drug therapy; Z88.1 Allergy status to other antibiotic agents
CPT/HCPCS: 93005; 93010; 99283-25; A9270; J0697

== ENCOUNTER → 2023-10-16 | Outpatient (CLI) | payer OTHER ==
[~2023-10-16] MED LIST changes: +BACITRACIN ZIN1 EAC1 TOP; +CEFU500T30 PO
[2023-10-16 15:24] LABS: Source, Urine Clean Catch
[2023-10-16 17:31] LABS: Appearance, Urine Hazy (Clear); Blood, Urine Neg (Neg); Color, Urine Yellow (P-Yellow); Glucose Qualitative, Urine Neg (Neg); Ketones, Urine Neg (Neg); Leukocyte Esterase, Urine 1+ (Neg); Nitrite, Urine Neg (Neg); Protein, Urine 2+ (Neg); Urobilinogen, Urine 1+ (Normal)
[2023-10-16 17:44] LABS: Bilirubin, Urine 1+ (Neg)
[2023-10-16 17:45] LABS: Bacteria Mod /hpf; Calcium Oxalate Crystals Many /hpf; Mucus Mod (0-Heavy); Red Blood Cells, Urine 0-2 /hpf (0-2); Squamous Epithelial Cells Few /hpf (Few)
[2023-10-16 19:10] LABS: Bacterial Vaginosis PCR Negative (NEGATIVE); Candida glabrata-krusei, PCR NOT DETECTED (NOT DETECT)
[2023-10-16 19:40] LABS: Candida Group, PCR DETECTED (NOT DETECT)
== END ==
LOC: LAB 15:22 → LAB SHORT 15:22
PROVIDERS: Nurse Practitioner Family
DX: R10.84 Generalized abdominal pain (principal)
CPT/HCPCS: 81001; 87086; 87481; 87661; 87801

== ENCOUNTER 2023-11-21 19:56 | Emergency (ER) | payer OTHER ==
[~2023-11-21] VITALS: Ht 144.8 cm; Wt 63.5 kg
[~2023-11-21 19:56] MED LIST changes: +MIRALAX17 GM PO
[2023-11-21 21:00] LABS: Albumin, Blood 3.8 g/dL (3.4-5.0); Bilirubin, Total 0.6 mg/dL (0.1-1.0); Bun/Creatinine Ratio 17.8 (12.0-20.0); Calcium, Blood 9.7 mg/dL (8.5-10.1); Creatinine, Blood 0.9 mg/dL (0.40-1.00); Globulin, Blood 3.8 g/dL (2.2-4.0); Potassium, Blood 3.5 mmol/L (3.5-5.5); Total Protein, Blood 7.6 g/dL (6.4-8.2)
[2023-11-21] MEDS ORDERED: CLIMARA1 EACH TOP (21:07)
[2023-11-21 21:09] LABS: BASOPHILS ABSOLUTE AUTO 0.06 K/mm3 (0.00-0.23); BASOPHILS PERCENT AUTO 1 % (0-2); EOSINOPHILS ABSOLUTE AUTO 0.09 K/mm3 (0.00-0.68); EOSINOPHILS PERCENT AUTO 1 % (0-6); Hematocrit 41.6 % (33.0-51.0); Hemoglobin 14.1 g/dL (11.5-16.0); IMMATURE GRAN ABSOLUTE AUTO 0.01 K/mm3 (0.00-0.10); IMMATURE GRAN PERCENT AUTO 0 % (0-1); LYMPHOCYTES PERCENT AUTO 34 % (21-46); MONOCYTES ABSOLUTE AUTO 0.52 K/mm3 (0.16-1.47); MONOCYTES PERCENT AUTO 8 % (4-13); Mean Corpuscular HGB Conc 33.9 g/dL (31.5-36.5); Mean Corpuscular Volume 89 fL (80-100); Mean Platelet Volume 10.3 fL (9.1-12.4); NEUTROPHILS ABSOLUTE AUTO 3.73 K/mm3 (1.96-9.15); NEUTROPHILS PERCENT AUTO 56 % (41-73); Platelet Count 222 K/mm3 (150-400); RDW Coefficient Variation 13.4 % (11.7-14.2); RDW Standard Deviation 43.9 fL (35.1-46.3); White Blood Cell Count 6.71 K/mm3 (4.00-11.30)
[2023-11-21] MEDS ORDERED: Sucralfate 1000MG / 10ML UD BTL PO ONE (21:15)
[2023-11-21 22:37] VITALS: BP 109/74
[2023-11-21] MEDS ORDERED: Ondansetron HCl 2 MG / ML 2ML Vial IV ONE (23:10)
== END 2023-11-21 23:16 | disposition home or self-care (01) ==
LOC: ER 19:56
PROVIDERS: Physician Assistant
DX: R10.12 Left upper quadrant pain (principal); R04.2 Hemoptysis; M79.10 Myalgia, unspecified site; R21 Rash and other nonspecific skin eruption; Z79.899 Other long term (current) drug therapy; Z88.1 Allergy status to other antibiotic agents; J45.909 Unspecified asthma, uncomplicated
CPT/HCPCS: 71046; 80053; 82550; 85025; 85379; 86140; 96374; 99283-25; A9270; J2405

== ENCOUNTER 2023-11-25 23:23 | Emergency (ER) | payer OTHER ==
[~2023-11-25] VITALS: Ht 144.8 cm; Wt 63.5 kg
[2023-11-25 23:46] LABS: BASOPHILS ABSOLUTE AUTO 0.06 K/mm3 (0.00-0.23); BASOPHILS PERCENT AUTO 1 % (0-2); EOSINOPHILS ABSOLUTE AUTO 0.09 K/mm3 (0.00-0.68); EOSINOPHILS PERCENT AUTO 1 % (0-6); Hematocrit 38.3 % (33.0-51.0); Hemoglobin 12.9 g/dL (11.5-16.0); IMMATURE GRAN ABSOLUTE AUTO 0.01 K/mm3 (0.00-0.10); IMMATURE GRAN PERCENT AUTO 0 % (0-1); LYMPHOCYTES ABSOLUTE AUTO 2.86 K/mm3 (0.84-5.20); LYMPHOCYTES PERCENT AUTO 44 % (21-46); MONOCYTES ABSOLUTE AUTO 0.62 K/mm3 (0.16-1.47); MONOCYTES PERCENT AUTO 10 % (4-13); Mean Corpuscular HGB 29.9 pg (26.0-34.0); Mean Corpuscular HGB Conc 33.7 g/dL (31.5-36.5); Mean Corpuscular Volume 89 fL (80-100); Mean Platelet Volume 10.1 fL (9.1-12.4); NEUTROPHILS ABSOLUTE AUTO 2.86 K/mm3 (1.96-9.15); NEUTROPHILS PERCENT AUTO 44 % (41-73); Platelet Count 230 K/mm3 (150-400); RDW Coefficient Variation 13.3 % (11.7-14.2); RDW Standard Deviation 43.4 fL (35.1-46.3); Red Blood Cell Count 4.32 M/mm3 (3.80-5.20)
[2023-11-26 00:07] LABS: Albumin, Blood 3.5 g/dL (3.4-5.0); Bilirubin, Total 0.5 mg/dL (0.1-1.0); Bun/Creatinine Ratio 16.7 (12.0-20.0); Calcium, Blood 9.3 mg/dL (8.5-10.1); Creatinine, Blood 0.96 mg/dL (0.40-1.00); Globulin, Blood 3.6 g/dL (2.2-4.0); Potassium, Blood 3.3 mmol/L (3.5-5.5); Total Protein, Blood 7.1 g/dL (6.4-8.2)
[2023-11-26 01:02] VITALS: BP 130/82
[2023-11-26] MEDS ORDERED: Doxycycline Hyclate 100 MG TAB PO ONE (03:00)
[2023-11-26] MEDS ORDERED: Doxycycline Mo100 M1 PO (03:12)
== END 2023-11-26 03:22 | disposition home or self-care (01) ==
LOC: ER 23:23
PROVIDERS: Student in an Organized Health Care Education/Training Program
DX: L03.211 Cellulitis of face (principal); J45.909 Unspecified asthma, uncomplicated; G43.909 Migraine, unspecified, not intractable, without status migrainosus; Z79.899 Other long term (current) drug therapy; Z88.1 Allergy status to other antibiotic agents; Z11.3 Encounter for screening for infections with a predominantly sexual mode of transmission
CPT/HCPCS: 36415; 80053; 84703; 85025; 86592; 86803; 87340; 87389; 99283; A9270

== ENCOUNTER 2023-12-17 14:03 | Emergency (ER) | payer OTHER ==
[~2023-12-17] VITALS: Ht 144.8 cm; Wt 59.0 kg
[~2023-12-17 14:03] MED LIST changes: +Doxycycline Mo100 M1 PO
[2023-12-17 14:24] VITALS: BP 117/69
[2023-12-17 14:53] LABS: BASOPHILS ABSOLUTE AUTO 0.07 K/mm3 (0.00-0.23); BASOPHILS PERCENT AUTO 1 % (0-2); EOSINOPHILS ABSOLUTE AUTO 0.11 K/mm3 (0.00-0.68); EOSINOPHILS PERCENT AUTO 2 % (0-6); Hematocrit 42.5 % (33.0-51.0); Hemoglobin 14.4 g/dL (11.5-16.0); IMMATURE GRAN ABSOLUTE AUTO 0.02 K/mm3 (0.00-0.10); IMMATURE GRAN PERCENT AUTO 0 % (0-1); LYMPHOCYTES ABSOLUTE AUTO 2.49 K/mm3 (0.84-5.20); LYMPHOCYTES PERCENT AUTO 37 % (21-46); MONOCYTES ABSOLUTE AUTO 0.61 K/mm3 (0.16-1.47); MONOCYTES PERCENT AUTO 9 % (4-13); Mean Corpuscular HGB 30.3 pg (26.0-34.0); Mean Corpuscular HGB Conc 33.9 g/dL (31.5-36.5); Mean Corpuscular Volume 89 fL (80-100); Mean Platelet Volume 9.6 fL (9.1-12.4); NEUTROPHILS ABSOLUTE AUTO 3.39 K/mm3 (1.96-9.15); NEUTROPHILS PERCENT AUTO 51 % (41-73); Platelet Count 224 K/mm3 (150-400); RDW Coefficient Variation 13.2 % (11.7-14.2); RDW Standard Deviation 43.7 fL (35.1-46.3); Red Blood Cell Count 4.76 M/mm3 (3.80-5.20); White Blood Cell Count 6.69 K/mm3 (4.00-11.30)
[2023-12-17 15:09] LABS: Albumin, Blood 3.6 g/dL (3.4-5.0); Bilirubin, Total 0.5 mg/dL (0.1-1.0); Bun/Creatinine Ratio 13.4 (12.0-20.0); Creatinine, Blood 0.97 mg/dL (0.40-1.00); Globulin, Blood 3.5 g/dL (2.2-4.0); Potassium, Blood 3.1 mmol/L (3.5-5.5); Total Protein, Blood 7.1 g/dL (6.4-8.2)
[2023-12-17] MEDS ORDERED: Cleocin HCl150 MG PO (16:03)
== END 2023-12-17 16:45 | disposition home or self-care (01) ==
LOC: ER 14:03
PROVIDERS: Physician Assistant
DX: L03.211 Cellulitis of face (principal); L03.312 Cellulitis of back [any part except buttock and flank]; L03.116 Cellulitis of left lower limb; L03.115 Cellulitis of right lower limb; L02.01 Cutaneous abscess of face; L02.212 Cutaneous abscess of back [any part, except buttock and flank]; L02.416 Cutaneous abscess of left lower limb; L02.415 Cutaneous abscess of right lower limb; Z59.89 Other problems related to housing and economic circumstances; E87.6 Hypokalemia; E87.8 Other disorders of electrolyte and fluid balance, not elsewhere classified; G43.909 Migraine, unspecified, not intractable, without status migrainosus; M79.7 Fibromyalgia; J45.909 Unspecified asthma, uncomplicated
CPT/HCPCS: 80053; 85025; 87070; 87205; 99283

== ENCOUNTER 2024-03-02 11:34 | Day surgery (SDC) | payer OTHER ==
[~2024-03-02] VITALS: Ht 144.8 cm; Wt 65.0 kg
[2024-03-02] VITALS (12 sets, daily range): BP systolic 87–112; BP diastolic 46–79
[~2024-03-02 11:34] MED LIST changes: +ALBU90OI INH; +Adipex-P37.5 M1 PO; +BENADRYL25 MG PO; +BREYNA 80-4.510.3 GM INH; +Cleocin HCl150 MG PO; +ESTRADIOL1 MG PO; +FURO20 PO; +HYDR1TAB94 PO; +LECITHIN400 MG PO; +LOSA25 PO; +Loratadine10 MG PO; +MSM1000 M3 PO; +POTA8 PO; +PRAZ1 PO; +PREG150 PO; +Robaxin750 MG PO; +SUMA25 PO; +THERA-D2000 UNIT PO; +ZINC GLUCONATE PO
[2024-03-02] MEDS ORDERED: Bupivacaine 0.5% HCl 5 MG/ML 30MLVIAL ONE (11:59)
[2024-03-02] MEDS ORDERED: Lactated Ringer's 1,000 ML IV SCH (12:20)
[2024-03-02] MEDS ORDERED: CeFAZolin Sodium 2,000 MG in NS 100 ML IV SCH (12:20)
[2024-03-02] MEDS ORDERED: CeFAZolin Sodium 2,000 MG VIAL ONE (12:22)
[2024-03-02] MEDS ORDERED: propofoL 20 ML IV ONE (12:27)
[2024-03-02] MEDS ORDERED: FentaNYL Citrate 50 MCG/ML 2 ML Injection ONE ×3 (12:27→14:52)
[2024-03-02] MEDS ORDERED: Midazolam HCl 1MG / ML 2ML Vial ONE (12:27)
--- NOTE | 2024-03-02 12:47 | NUR ---
1200 AMBULATE TO [facility], CONFIRMED SURGERY AND SURGEON,NPO [place], PT A LITTLE NEL EYED, REASSURED PT AND GAVE COMFORT. LUNGS CLEAR, PRE OP TEACHING DONE
[2024-03-02] MEDS ORDERED: Bupivacaine 0.5% HCl 5 MG/ML 30MLVIAL INJ ONE (12:57)
[2024-03-02] MEDS ORDERED: Ketorolac Tromethamine 30mg Vial ONE (13:06)
[2024-03-02] MEDS ORDERED: Rocuronium Bromide 10 MG/ML 5ML Injection IV ONE (13:07)
[2024-03-02] MEDS ORDERED: Dexamethasone Sod Phos 10 MG/ML 1ML VIAL ONE (13:07)
[2024-03-02] MEDS ORDERED: Ondansetron HCl 2 MG / ML 2ML Vial ONE (13:08)
[2024-03-02] MEDS ORDERED: Sugammadex Sodium 200 MG/2ML SDV (100 MG/ML) ONE (13:30)
[2024-03-02] MEDS ORDERED: OxyCODONE 5 mg/Acetamin 325 mg TABLET PO PRN (14:50)
[2024-03-02] MEDS ORDERED: Lactated Ringer's 1,000 ML IV ONE (15:08)
--- NOTE | 2024-03-02 16:28 | NUR ---
ASSUMED CARE 1625, PT AMBULATED TO BATHROOM WITH SBA AND WAS ABLE TO VOID
--- NOTE | 2024-03-02 16:54 | NUR ---
Discharge instructions reviewed with patient. Patient verbalizes understanding. Copy given to patient to take home. Prescription placed in discharge folder. dressings c/d/i. Abd binder in place. Patient States Post-Procedure ride home has been arranged. Discharged via wheelchair to private car for ride home.
== END 2024-03-02 17:00 | disposition home or self-care (01) ==
LOC: ORSCMMR 11:34 → ORD 13:00 → ORSCMMR 17:00
PROVIDERS: Surgery
PROC: 0WUF4JZ Supplement Abdominal Wall with Synthetic Substitute, Percutaneous Endoscopic Approach (ICD-10-PCS; principal; 2024-03-02 13:00)
PROC: 8E0W4CZ Robotic Assisted Procedure of Trunk Region, Percutaneous Endoscopic Approach (ICD-10-PCS; principal; 2024-03-02 13:00)
DX: K43.0 Incisional hernia with obstruction, without gangrene (principal); J45.909 Unspecified asthma, uncomplicated; Z79.51 Long term (current) use of inhaled steroids; F41.9 Anxiety disorder, unspecified; M79.7 Fibromyalgia; Z79.899 Other long term (current) drug therapy
CPT/HCPCS: A9270; C1781; J0690; J1100; J1885; J2250; J2405; J2704; J3010; J7120

== ENCOUNTER → 2024-03-13 | Outpatient (CLI) | payer OTHER ==
[~2024-03-13] MED LIST changes: +Reglan10 MG PO
[2024-03-13 15:08] LABS: BASOPHILS ABSOLUTE AUTO 0.07 K/mm3 (0.00-0.23); BASOPHILS PERCENT AUTO 1 % (0-2); EOSINOPHILS ABSOLUTE AUTO 0.15 K/mm3 (0.00-0.68); EOSINOPHILS PERCENT AUTO 2 % (0-6); Hematocrit 40.5 % (33.0-51.0); Hemoglobin 13.5 g/dL (11.5-16.0); IMMATURE GRAN ABSOLUTE AUTO 0.02 K/mm3 (0.00-0.10); IMMATURE GRAN PERCENT AUTO 0 % (0-1); LYMPHOCYTES ABSOLUTE AUTO 2.62 K/mm3 (0.84-5.20); LYMPHOCYTES PERCENT AUTO 36 % (21-46); MONOCYTES PERCENT AUTO 8 % (4-13); Mean Corpuscular HGB 28.9 pg (26.0-34.0); Mean Corpuscular HGB Conc 33.3 g/dL (31.5-36.5); Mean Corpuscular Volume 87 fL (80-100); Mean Platelet Volume 9.4 fL (9.1-12.4); NEUTROPHILS ABSOLUTE AUTO 3.78 K/mm3 (1.96-9.15); NEUTROPHILS PERCENT AUTO 52 % (41-73); Platelet Count 243 K/mm3 (150-400); RDW Coefficient Variation 13.5 % (11.7-14.2); Red Blood Cell Count 4.67 M/mm3 (3.80-5.20); White Blood Cell Count 7.24 K/mm3 (4.00-11.30)
== END | disposition home or self-care (01) ==
LOC: LAB SHORT 15:04 → LAB 15:04
PROVIDERS: Physician Assistant
DX: R10.9 Unspecified abdominal pain (principal)
CPT/HCPCS: 85025

== ENCOUNTER → 2024-03-16 | Outpatient (CLI) | payer OTHER ==
[2024-03-16 11:10] LABS: BASOPHILS ABSOLUTE AUTO 0.05 K/mm3 (0.00-0.23); BASOPHILS PERCENT AUTO 1 % (0-2); EOSINOPHILS ABSOLUTE AUTO 0.25 K/mm3 (0.00-0.68); EOSINOPHILS PERCENT AUTO 5 % (0-6); Hematocrit 39.1 % (33.0-51.0); Hemoglobin 13.3 g/dL (11.5-16.0); IMMATURE GRAN ABSOLUTE AUTO 0.02 K/mm3 (0.00-0.10); IMMATURE GRAN PERCENT AUTO 0 % (0-1); LYMPHOCYTES ABSOLUTE AUTO 1.79 K/mm3 (0.84-5.20); LYMPHOCYTES PERCENT AUTO 33 % (21-46); MONOCYTES ABSOLUTE AUTO 0.38 K/mm3 (0.16-1.47); MONOCYTES PERCENT AUTO 7 % (4-13); Mean Corpuscular HGB 28.9 pg (26.0-34.0); Mean Corpuscular Volume 85 fL (80-100); Mean Platelet Volume 9.3 fL (9.1-12.4); NEUTROPHILS ABSOLUTE AUTO 2.88 K/mm3 (1.96-9.15); NEUTROPHILS PERCENT AUTO 54 % (41-73); Platelet Count 237 K/mm3 (150-400); RDW Coefficient Variation 13.4 % (11.7-14.2); RDW Standard Deviation 41.1 fL (35.1-46.3); White Blood Cell Count 5.37 K/mm3 (4.00-11.30)
[2024-03-16 11:28] LABS: Albumin, Blood 3.9 g/dL (3.4-5.0); Albumin/Globulin Ratio 1.1 (0.8-1.8); Bilirubin, Total 0.5 mg/dL (0.1-1.0); Bun/Creatinine Ratio 12.4 (12.0-20.0); Calcium, Blood 9.4 mg/dL (8.5-10.1); Creatinine, Blood 1.13 mg/dL (0.40-1.00); Globulin, Blood 3.7 g/dL (2.2-4.0); Potassium, Blood 3.5 mmol/L (3.5-5.5); Total Protein, Blood 7.6 g/dL (6.4-8.2)
== END ==
LOC: LAB SHORT 11:04 → LAB 11:04
PROVIDERS: Physician Assistant
DX: R10.9 Unspecified abdominal pain (principal)
CPT/HCPCS: 80053; 83690; 85025

== ENCOUNTER 2024-03-19 19:47 | Emergency (ER) | payer OTHER ==
[~2024-03-19] VITALS: Ht 144.8 cm; Wt 59.0 kg
[~2024-03-19 19:47] MED LIST changes: -Reglan10 MG PO
[2024-03-19 20:34] LABS: Source, Urine Clean Catch
[2024-03-19 20:37] LABS: BASOPHILS ABSOLUTE AUTO 0.06 K/mm3 (0.00-0.23); BASOPHILS PERCENT AUTO 1 % (0-2); EOSINOPHILS ABSOLUTE AUTO 0.13 K/mm3 (0.00-0.68); EOSINOPHILS PERCENT AUTO 2 % (0-6); Hematocrit 41.5 % (33.0-51.0); Hemoglobin 14.1 g/dL (11.5-16.0); IMMATURE GRAN ABSOLUTE AUTO 0.03 K/mm3 (0.00-0.10); IMMATURE GRAN PERCENT AUTO 0 % (0-1); LYMPHOCYTES ABSOLUTE AUTO 2.68 K/mm3 (0.84-5.20); LYMPHOCYTES PERCENT AUTO 34 % (21-46); MONOCYTES ABSOLUTE AUTO 0.56 K/mm3 (0.16-1.47); MONOCYTES PERCENT AUTO 7 % (4-13); Mean Corpuscular HGB 29.6 pg (26.0-34.0); Mean Corpuscular Volume 87 fL (80-100); Mean Platelet Volume 9.6 fL (9.1-12.4); NEUTROPHILS ABSOLUTE AUTO 4.54 K/mm3 (1.96-9.15); NEUTROPHILS PERCENT AUTO 57 % (41-73); Platelet Count 284 K/mm3 (150-400); RDW Coefficient Variation 13.4 % (11.7-14.2); RDW Standard Deviation 42.4 fL (35.1-46.3); Red Blood Cell Count 4.77 M/mm3 (3.80-5.20)
[2024-03-19 20:38] LABS: Appearance, Urine Cloudy (Clear); Bilirubin, Urine Neg (Neg); Blood, Urine 3+ (Neg); Color, Urine Yellow (P-Yellow); Glucose Qualitative, Urine Neg (Neg); Ketones, Urine Neg (Neg); Leukocyte Esterase, Urine 3+ (Neg); Nitrite, Urine Neg (Neg); Protein, Urine 2+ (Neg); Specific Gravity, Urine 1.025 (1.003-1.022); Urobilinogen, Urine 1+ (Normal)
[2024-03-19 20:46] LABS: Hyaline Casts 0-2 /lpf (0-2)
[2024-03-19 20:47] LABS: Bacteria Many /hpf; Calcium Oxalate Crystals Few /hpf; Mucus Light (0-Heavy); Squamous Epithelial Cells Many /hpf (Few)
[2024-03-19] MEDS ORDERED: Metoclopramide HCl 5MG / ML 2ML Vial IV ONE (20:50)
[2024-03-19 20:57] LABS: Albumin, Blood 4.2 g/dL (3.4-5.0); Albumin/Globulin Ratio 1.1 (0.8-1.8); Bilirubin, Total 0.3 mg/dL (0.1-1.0); Bun/Creatinine Ratio 16.7 (12.0-20.0); Calcium, Blood 9.3 mg/dL (8.5-10.1); Creatinine, Blood 1.02 mg/dL (0.40-1.00); Globulin, Blood 3.9 g/dL (2.2-4.0); Potassium, Blood 3.2 mmol/L (3.5-5.5); Total Protein, Blood 8.1 g/dL (6.4-8.2)
[2024-03-19] MEDS ORDERED: Reglan10 MG PO (22:43)
[2024-03-19 22:45] VITALS: BP 102/61
== END 2024-03-19 22:52 | disposition home or self-care (01) ==
LOC: ER 19:47
PROVIDERS: Student in an Organized Health Care Education/Training Program
DX: K91.89 Other postprocedural complications and disorders of digestive system (principal); K56.7 Ileus, unspecified; K30 Functional dyspepsia; K21.9 Gastro-esophageal reflux disease without esophagitis; I10 Essential (primary) hypertension; E78.5 Hyperlipidemia, unspecified; J45.909 Unspecified asthma, uncomplicated; Z79.899 Other long term (current) drug therapy; Z79.51 Long term (current) use of inhaled steroids
CPT/HCPCS: 74177; 80053; 81001; 83690; 85025; 87086; 96374; 99284-25; J2765; Q9967

== ENCOUNTER 2024-03-28 11:06 | Emergency (ER) | payer OTHER ==
[~2024-03-28] VITALS: Ht 144.8 cm; Wt 63.5 kg
[~2024-03-28 11:06] MED LIST changes: +Reglan10 MG PO
[2024-03-28 12:40] LABS: BASOPHILS ABSOLUTE AUTO 0.05 K/mm3 (0.00-0.23); BASOPHILS PERCENT AUTO 1 % (0-2); EOSINOPHILS ABSOLUTE AUTO 0.16 K/mm3 (0.00-0.68); EOSINOPHILS PERCENT AUTO 3 % (0-6); Hematocrit 39.2 % (33.0-51.0); Hemoglobin 13.2 g/dL (11.5-16.0); IMMATURE GRAN ABSOLUTE AUTO 0.01 K/mm3 (0.00-0.10); IMMATURE GRAN PERCENT AUTO 0 % (0-1); LYMPHOCYTES ABSOLUTE AUTO 1.65 K/mm3 (0.84-5.20); LYMPHOCYTES PERCENT AUTO 34 % (21-46); MONOCYTES ABSOLUTE AUTO 0.42 K/mm3 (0.16-1.47); MONOCYTES PERCENT AUTO 9 % (4-13); Mean Corpuscular HGB 29.5 pg (26.0-34.0); Mean Corpuscular HGB Conc 33.7 g/dL (31.5-36.5); Mean Corpuscular Volume 88 fL (80-100); Mean Platelet Volume 9.6 fL (9.1-12.4); NEUTROPHILS PERCENT AUTO 53 % (41-73); Platelet Count 234 K/mm3 (150-400); RDW Coefficient Variation 13.5 % (11.7-14.2); RDW Standard Deviation 43.5 fL (35.1-46.3); Red Blood Cell Count 4.48 M/mm3 (3.80-5.20); White Blood Cell Count 4.89 K/mm3 (4.00-11.30)
[2024-03-28 13:04] LABS: Albumin, Blood 3.8 g/dL (3.4-5.0); Bilirubin, Total 0.4 mg/dL (0.1-1.0); Bun/Creatinine Ratio 12.9 (12.0-20.0); Calcium, Blood 9.2 mg/dL (8.5-10.1); Creatinine, Blood 1.01 mg/dL (0.40-1.00); Globulin, Blood 3.8 g/dL (2.2-4.0); Potassium, Blood 3.7 mmol/L (3.5-5.5); Total Protein, Blood 7.6 g/dL (6.4-8.2)
[2024-03-28 13:07] VITALS: BP 92/51
[2024-03-28] MEDS ORDERED: OxyCODONE HCL 5 MG TAB PO ONE (13:25)
== END 2024-03-28 14:00 | disposition home or self-care (01) ==
LOC: ER 11:06
PROVIDERS: Student in an Organized Health Care Education/Training Program
DX: T75.4XXA Electrocution, initial encounter (principal); R22.31 Localized swelling, mass and lump, right upper limb; J45.909 Unspecified asthma, uncomplicated; Z79.1 Long term (current) use of non-steroidal anti-inflammatories (NSAID); Z79.51 Long term (current) use of inhaled steroids; Z79.811 Long term (current) use of aromatase inhibitors; Z79.890 Hormone replacement therapy; Z88.9 Allergy status to unspecified drugs, medicaments and biological substances; Z79.01 Long term (current) use of anticoagulants; Z79.899 Other long term (current) drug therapy; Z88.8 Allergy status to other drugs, medicaments and biological substances; Z79.810 Long term (current) use of selective estrogen receptor modulators (SERMs)
CPT/HCPCS: 80053; 82550; 83605; 84484; 85025; 93005; 93010; 99283-25; A9270

== ENCOUNTER → 2024-03-31 | Outpatient (CLI) | payer OTHER | LOC: LAB SHORT 15:30 → LAB 15:30 | DX: J02.9 Acute pharyngitis, unspecified (principal) | CPT/HCPCS: 87081 ==

== ENCOUNTER 2024-05-05 06:12 | Day surgery (SDC) | payer OTHER ==
[~2024-05-05] VITALS: Ht 144.8 cm; Wt 61.1 kg
[2024-05-05] MEDS ORDERED: Lactated Ringer's 1,000 ML IV ONE ×2 (07:20→07:45)
[2024-05-05] MEDS ORDERED: Midazolam HCl 1MG / ML 2ML Vial ONE (07:30)
[2024-05-05] MEDS ORDERED: propofoL 20 ML IV ONE (07:30)
[2024-05-05] MEDS ORDERED: FentaNYL Citrate 50 MCG/ML 2 ML Injection ONE ×2 (07:30→08:56)
[2024-05-05] MEDS ORDERED: Rocuronium Bromide 10 MG/ML 5ML Injection IV ONE (07:43)
[2024-05-05] MEDS ORDERED: Dexamethasone Sod Phos 10 MG/ML 1ML VIAL ONE (07:43)
[2024-05-05] MEDS ORDERED: Ondansetron HCl 2 MG / ML 2ML Vial ONE (07:43)
[2024-05-05] MEDS ORDERED: Sugammadex Sodium 200 MG/2ML SDV (100 MG/ML) ONE (07:44)
--- NOTE | 2024-05-05 08:17 | NUR ---
05/05/24 0817 Kathleen Mendez PT TRANSFERS TO SDU A&O. PT INTERMITTENTLY GRIMACING FROM PAIN. PT CONVERSING W/ RN. PT UNCOOPERATIVE W/ RELAXING ARM TO OBTAIN BP AT THIS TIME. PT SPITTING UP SMALL AMOUNT OF BLOOD-TINGED SPUTUM INTO EMESIS BAG. VSS, ON RA.
[2024-05-05] MEDS ORDERED: OxyCODONE HCL 5 MG TAB ONE (08:38)
[2024-05-05 09:24] VITALS: BP 92/67
== END 2024-05-05 09:52 | disposition home or self-care (01) ==
LOC: ORSCSDS 06:12
PROVIDERS: Otolaryngology
PROC: 0CTPXZZ Resection of Tonsils, External Approach (ICD-10-PCS; principal; 2024-05-05 07:30)
DX: J35.01 Chronic tonsillitis (principal); I10 Essential (primary) hypertension; J45.909 Unspecified asthma, uncomplicated; M79.7 Fibromyalgia; Z79.899 Other long term (current) drug therapy
CPT/HCPCS: 88304; A9270; J1100; J2250; J2405; J2704; J3010; J7120

== ENCOUNTER 2024-06-11 16:34 | Inpatient (IN) | payer OTHER ==
[~2024-06-11] VITALS: Ht 144.8 cm; Wt 60.1 kg
[2024-06-11] MEDS ORDERED: NS 1,000 ML IV SCH (16:55)
[2024-06-11 17:12] LABS: BASOPHILS ABSOLUTE AUTO 0.05 K/mm3 (0.00-0.23); BASOPHILS PERCENT AUTO 1 % (0-2); EOSINOPHILS ABSOLUTE AUTO 0.26 K/mm3 (0.00-0.68); EOSINOPHILS PERCENT AUTO 4 % (0-6); Hematocrit 40.1 % (33.0-51.0); Hemoglobin 13.3 g/dL (11.5-16.0); IMMATURE GRAN ABSOLUTE AUTO 0.01 K/mm3 (0.00-0.10); IMMATURE GRAN PERCENT AUTO 0 % (0-1); LYMPHOCYTES ABSOLUTE AUTO 3.49 K/mm3 (0.84-5.20); LYMPHOCYTES PERCENT AUTO 51 % (21-46); MONOCYTES PERCENT AUTO 7 % (4-13); Mean Corpuscular HGB 29.8 pg (26.0-34.0); Mean Corpuscular HGB Conc 33.2 g/dL (31.5-36.5); Mean Corpuscular Volume 90 fL (80-100); Mean Platelet Volume 10.7 fL (9.1-12.4); NEUTROPHILS PERCENT AUTO 38 % (41-73); Platelet Count 207 K/mm3 (150-400); RDW Coefficient Variation 14.8 % (11.7-14.2); RDW Standard Deviation 48.9 fL (35.1-46.3); Red Blood Cell Count 4.47 M/mm3 (3.80-5.20); White Blood Cell Count 6.91 K/mm3 (4.00-11.30)
[2024-06-11 17:31] LABS: Albumin, Blood 3.4 g/dL (3.4-5.0); Bilirubin, Total 0.4 mg/dL (0.1-1.0); Bun/Creatinine Ratio 12.9 (12.0-20.0); Calcium, Blood 8.6 mg/dL (8.5-10.1); Creatinine, Blood 0.78 mg/dL (0.40-1.00); Globulin, Blood 3.3 g/dL (2.2-4.0); Magnesium, Blood 1.7 mg/dL (1.6-2.4); Potassium, Blood 3.5 mmol/L (3.5-5.5); Total Protein, Blood 6.7 g/dL (6.4-8.2)
[2024-06-11 19:06] LABS: U Amphetamine Screen Not Detected; U Barbituate Screen Not Detected; U Benzodiazapine Screen Not Detected; U Buprenorphine Screen Not Detected; U Cannabinoids Screen DETECTED; U Cocaine Screen Not Detected; U Methadone Screen Not Detected; U Methamphetamine Screen Not Detected; U Opiates Screen Not Detected; U Oxycodone Screen Not Detected; U Phencyclidine Screen Not Detected
[2024-06-11 19:15] LABS: Source, Urine Clean Catch
[2024-06-11 19:18] LABS: Appearance, Urine Clear (Clear); Bilirubin, Urine Neg (Neg); Blood, Urine Neg (Neg); Color, Urine Yellow (P-Yellow); Glucose Qualitative, Urine Neg (Neg); Ketones, Urine Neg (Neg); Leukocyte Esterase, Urine Neg (Neg); Nitrite, Urine Neg (Neg); Protein, Urine 1+ (Neg); Urobilinogen, Urine NORM (Normal)
[2024-06-11] MEDS ORDERED: Lactated Ringer's 1,000 ML IV ONE (20:10)
[2024-06-11] MEDS ORDERED: Ondansetron HCl 2 MG / ML 2ML Vial IV PRN (21:00)
[2024-06-11] MEDS ORDERED: Lactated Ringer's 1,000 ML IV SCH (21:00)
[2024-06-11] MEDS ORDERED: Albuterol 2.5 MG/3 ML VIAL INH PRN (21:05)
[2024-06-11 21:13] LABS: International Normalized Ratio 0.99; Prothrombin Time Results 10.6 Sec (9.7-11.5)
[2024-06-11] MEDS ORDERED: Midodrine 5 MG Tab PO ONE (22:00)
[2024-06-11 22:17] VITALS: BP 91/47
[2024-06-11 23:47] VITALS: BP 105/58
[2024-06-12] VITALS (7 sets, daily range): BP systolic 96–122; BP diastolic 61–77
[2024-06-12] MEDS ORDERED: FentaNYL Citrate 50 MCG/ML 2 ML Injection IV PRN (02:05)
--- NOTE | 2024-06-12 02:50 | NUR ---
PT REPORTED INTERMITTENT, SEVERE PAIN IN ABDOMEN, STERNAL REGION, AND RIGHT/MIDDLE BACK. STATES PAIN IS SEVERE, SHARP, STABBING. MD NOTIFIED, SEE NEW ORDERS FOR PAIN MANAGEMENT
--- NOTE | 2024-06-12 04:33 | NUR ---
SHIFT SUMMARY PT ARRIVED AT [facility] AT 2210. REPORT RECEIVED FROM AVA ZAPATA. PT TRANSFERRED FROM [facility] TO HOSPITAL BED INDENPENDENTLY. LR INFUSING UPON ARRIVAL. A/OX4, ENDORSES PAIN IN HER RIGHT IV SITE. IV REMOVED, POWER GLIDE INSERTED IN LEFT UPPER ARM. DISPLAYING INTERMITTENT LEFT EYE DROOP. SMILE EQUAL BILATERALLY, STRENGTH EQUAL IN BUE AND BLE. PERRLA. PT LATER REPORTED ABDOMINAL/CHEST PAIN RADIATING THROUGH TO HER BACK. SEE NOTE AND NEW ORDERS FROM MD. ALSO REPORTS INTERMITTENT DIZZYNESS. ON ROOM AIR SATS ABOVE 95%, REPORTS SOB WHEN LYING FLAT. AMBULATING INDEPENDENTLY WITH SBA FOR CORD/LINE MANAGEMENT TO BATHROOM. PT HAS SEVERAL LESIONS T/O BODY IN VARIOUS STAGES OF HEALING. 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 PT HAS EXTENSIVE MEDICAL HISTORY. REPORTS BEING ELECTROCUTED BY HER DRYER THIS YEAR, TONSIL MASS WITH TONSILECTOMY, RENAL ISSUES (FOLLOWED BY SLICK), RECENT HERNIA REPAIR, ETC. MD TO SEE PT AT 0430, PT REPORTED PAIN IN NECK, BACK, CHEST AND SOB. CT ORDERED.
--- NOTE | 2024-06-12 04:34 | NUR ---
PT HAD 4 BEAT EPISODE OF BRADYCARDIA IN THE 30'S, MD NOTIFIED.
[2024-06-12 05:27] LABS: BASOPHILS ABSOLUTE AUTO 0.08 K/mm3 (0.00-0.23); BASOPHILS PERCENT AUTO 1 % (0-2); EOSINOPHILS ABSOLUTE AUTO 0.33 K/mm3 (0.00-0.68); EOSINOPHILS PERCENT AUTO 4 % (0-6); Hematocrit 36.9 % (33.0-51.0); Hemoglobin 12.3 g/dL (11.5-16.0); IMMATURE GRAN ABSOLUTE AUTO 0.02 K/mm3 (0.00-0.10); IMMATURE GRAN PERCENT AUTO 0 % (0-1); LYMPHOCYTES ABSOLUTE AUTO 3.67 K/mm3 (0.84-5.20); LYMPHOCYTES PERCENT AUTO 44 % (21-46); MONOCYTES ABSOLUTE AUTO 0.63 K/mm3 (0.16-1.47); MONOCYTES PERCENT AUTO 8 % (4-13); Mean Corpuscular HGB 29.4 pg (26.0-34.0); Mean Corpuscular HGB Conc 33.3 g/dL (31.5-36.5); Mean Corpuscular Volume 88 fL (80-100); Mean Platelet Volume 10.9 fL (9.1-12.4); NEUTROPHILS ABSOLUTE AUTO 3.68 K/mm3 (1.96-9.15); NEUTROPHILS PERCENT AUTO 44 % (41-73); Platelet Count 184 K/mm3 (150-400); RDW Coefficient Variation 14.9 % (11.7-14.2); RDW Standard Deviation 47.7 fL (35.1-46.3); Red Blood Cell Count 4.19 M/mm3 (3.80-5.20); White Blood Cell Count 8.41 K/mm3 (4.00-11.30)
[2024-06-12 05:48] LABS: Albumin, Blood 2.9 g/dL (3.4-5.0); Bilirubin, Total 0.2 mg/dL (0.1-1.0); Bun/Creatinine Ratio 12.7 (12.0-20.0); Calcium, Blood 8.1 mg/dL (8.5-10.1); Creatinine, Blood 0.79 mg/dL (0.40-1.00); Potassium, Blood 3.7 mmol/L (3.5-5.5); Total Protein, Blood 5.9 g/dL (6.4-8.2)
--- NOTE | 2024-06-12 09:46 | NUR ---
UPDATE PT TO CT PE STUDY.
--- NOTE | 2024-06-12 10:17 | NUR ---
UPDATE: PT BACK FROM IMAGING. SPOUSE AT BEDSIDE.
[2024-06-12] MEDS ORDERED: Hydrocortisone Sod Succinate 100 MG Vial IV ONE (12:00)
[2024-06-12] MEDS ORDERED: Acetaminophen 325 MG TABLET PO PRN (14:05)
[2024-06-12] MEDS ORDERED: TraMADol HCl 50 MG Tab PO PRN (14:05)
[2024-06-12] MEDS ORDERED: Ketorolac Tromethamine 15mg Vial IV PRN (14:20)
--- NOTE | 2024-06-12 17:10 | NUR ---
SHIFT SUMMARY: PT ALERT AND ORIENTED X4, ABLE TO FOLLOW COMMANDS AND MAKE NEEDS KNOWN. STRENGTH EQUAL BILATERALLY. PT WITH SLIGHT L. SIDE EYE DROOP THIS AM, PT STATES CHRONIC. SENSATION INTACT. HR SB 50-60'S. AFEBRILE. BP STABLE THIS SHIFT, MAP >65. SPO2 >96% ON ROOM AIR. RESPIRTAIONS EVEN AND UNLABORED. LUNG SOUNDS CLEAR THROUGHOUT. ABD SOFT, NON TENDER, BOWEL SOUNDS +. PT WITH X3 EPISODES OF DIRRHEA THIS SHIFT. CONT OF URINE. PULSES STRONG AND EQUAL THROUGHOUT. PT SBA TO AND FROM BATHROOM. PT WITH COMPLAINTS OF GENERALIZED PAIN, MEDICATED X1 PER EMAR. SPOUSE AND PARENTS AT BEDSIDE THIS EVENING, UPDATED ON PT PLAN OF CARE. LR REMAINS GTT @125ML/HR. BED IN LOW, CALL LIGHT IN REACH, WILL REPORT TO ONCOMING RN.
[2024-06-12] MEDS ORDERED: Hydrocortisone Sod Succinate 100 MG Vial IV SCH (18:00)
[2024-06-12] MEDS ORDERED: Mometasone/Formoterol MDI 200/5 mcg 13 GM INH SCH (20:15)
[2024-06-12] MEDS ORDERED: Doxycycline Hyclate 100 MG TAB PO SCH (21:00)
[2024-06-12] MEDS ORDERED: VILAZODONE HCL10 MG PO (21:39)
[2024-06-12] MEDS ORDERED: VENL25 PO (21:40)
[2024-06-12] MEDS ORDERED: Melatonin 5 MG Tablet PO PRN (21:55)
[2024-06-12] MEDS ORDERED: SUMAtriptan succinate 50 MG Tab PO PRN (22:10)
[2024-06-12] MEDS ORDERED: DiphenhydrAMINE HCL 25 MG Cap PO PRN (22:10)
[2024-06-13 04:36] VITALS: BP 92/56
--- NOTE | 2024-06-13 05:01 | NUR ---
SHIFT SUMMARY PT A/OX4, VERBALIZES NEEDS, FOLLOWS COMMANDS. TEARFUL THIS EVENING REGARDING SOME PERSONAL ISSUES WITH FAMILY. PT ENDORSED CHRONIC BACK AND HIP PAIN INTERMITTENTLY T/O NIGHT, TREATING PER EMAR. ON TELEMETRY, SINUS RHYTHM RATE ANYWHERE FROM 40'S - 70'S. PT HAS A DIFFICULT TIME WITH TEMPERATURE REGULATION AND REPORTS BEING VERY COLD OR VERY HOT, OFTEN. BPS SOFT IN 90'S-100'S SYSTOLIC. PT DENIES CHEST PAIN/PRESSURE. AMBULATING INDENENDENTLY TO BATHROOM WITH SBA FOR LINE MANAGEMENT. NO ACUTE EVENTS THIS SHIFT. WILL CONTINUE TO MONITOR AND REPORT TO ONCOMING RN.
[2024-06-13] MEDS ORDERED: Pantoprazole Sodium 40 MG Tab PO SCH (06:00)
[2024-06-13 08:40] VITALS: BP 108/74
[2024-06-13] MEDS ORDERED: Topiramate 100 MG Tab PO SCH (09:00)
[2024-06-13] MEDS ORDERED: Methocarbamol 500 MG Tab PO SCH (09:00)
[2024-06-13] MEDS ORDERED: Venlafaxine HCl 25 MG Tab PO SCH (09:00)
[2024-06-13] MEDS ORDERED: Hydrocortisone Sod Succinate 100 MG Vial IV SCH (09:00)
[2024-06-13] MEDS ORDERED: Estradiol 1 MG Tab PO SCH (09:00)
[2024-06-13] MEDS ORDERED: Montelukast Sodium 10 MG Tab PO SCH ×2 (09:00→21:00)
[2024-06-13] MEDS ORDERED: Loratadine 10 MG Tab PO SCH (09:00)
[2024-06-13] MEDS ORDERED: Pregabalin 75 MG Cap PO SCH (09:00)
[2024-06-13] MEDS ORDERED: HYDHCL25 PO (09:06)
[2024-06-13] MEDS ORDERED: HyDROXyzine HCl 25 MG Tab PO SCH ×2 (09:15→12:31)
[2024-06-13 11:02] VITALS: BP 99/63
--- NOTE | 2024-06-13 12:00 | NUR ---
MORNING SUMMARY PT IS A&OX4, GCS15, MOTOR FUNCTION INTACT, SLOW SPEECH, PUPILS ARE PERRLA; PT REPORTS LIGHT SENSITIVITY WITH MORE SENSITIVITY IN THE LEFT EYE. PT HAS DROOPING OF THE LEFT EYE; PT REPORTS HX OF THE SAME. PT HAS REDNESS OF THE LEFT EYELID. PT RESPONDS APPROPRIATELY TO COMMANDS. PT HAS EPISODES OF DIZZINESS AND NEEDS A 1P SBA. PT DID REPORT HITTING HER HEAD 06/12/2024 WHILE SITTING ON THE TOILE. ON TELE PT IS SB/SR 30'S-70'S. BLOOD PRESSURES SOFT BUT STABLE. FLUIDS D/C'D PER PROVIDER AND PRESSURE REMAIN STABLE. PT REPORTED CHEST AND ABDOMINAL DISCOMFORT THAT RESOLVED ON ITS OWN AND WITH REPOSITIONING. PT HAD AN EPISODE OF NAUSEA THAT RESOLVED WITH MEDICATION PER EMAR. PT REPORTED UNCONTROLLED SOFT STOOLS. PT HAS SCATTERED SCABS AND SCARS (FACE, HIPS, BLE). UPON ASSESSMENT PT APPEARED TO BE ANXIOUS AND DEFENSIVE; IMPROVED AFTER RESTARTING HOME MEDICATIONS. MRI HEAD COMPLETED THIS MORNING. PT O2 MAINTED >95% ON RA. SEE NOTES FOR ANY UPDATES.
[2024-06-13 15:13] VITALS: BP 91/58
[2024-06-13 16:58] VITALS: BP 95/58
--- NOTE | 2024-06-13 18:12 | NUR ---
END OF SHIFT SUMMARY REPORT PT REMAINS A&OX4, GCS15, MOTOR FUNCTION INTACT, PUPILS ARE PERRLA; PT REPORTS LIGHT SENSITIVITY WITH MORE SENSITIVITY IN THE LEFT EYE. PT HAS DROOPING OF THE LEFT EYE; REPORTS HX OF THE SAME. PT HAS RENDESS OF THE LEFT EYELID. PT RESPONDS APPROPRIATELY TO COMMANDS. PT HAS EPISODES OF DIZZINESS AND NEEDS A 1P SBA. ON TELE PT IS SB TO SR 30'S TO 70'S. BLOOD PRESSURE IS SOFT BUT REMAINS STABLE. PT REPORTS CHRONIC LOW BACK PAIN THAT RESOLVES WITH POSITIONING. PT REPORTED UNCONTROLABLE SOFT STOOLS. PT HAS SCATTERED SCABS AND SCARS (FACE, HIPS, BLE). AT START OF SHIFT PT APPEARED TO BE ANXIOUS AND DEFENSIVE; IMPROVED AFTER STARTING HER HOME MEDICATIONS. MRI OF THE HEAD WAS COMPLETED THIS MORNING. OXYGEN SATURATION MAINTAINED AT >95% ON RA. SEE NOTES FOR ANY UPDATES.
--- NOTE | 2024-06-13 19:19 | NUR ---
ASSUMPTION OF CARE PT WIDE AWAKE RESTING IN BED.BEDSIDE REPORT COMPLETED.PT DENIES PAIN,DENIES NAUSEA,REPORTS ITCHING AROUND THE DRESSING TO POWERGLIDE IV SITE ON SUN.NO REDNESS NOTED.PT INFORMED THAT SHE HAS PRN HS BENADRYL.PT STATES THAT SHE WILL TAKE THE BENADRYL WITH HS MED PASS.PT DENIES FURTHER NEEDS.CALL LIGHT AND PT'S ITEMS WITHIN REACH.BED IN THE LOWEST POSITION.PATIENTS CONDITION REMAINS STABLE AT THIS TIME.CONTINUING WITH THE PRESCRIBED PLAN OF CARE.
[2024-06-13 19:55] VITALS: BP 99/61
[2024-06-13] MEDS ORDERED: Prazosin HCl 1 MG Cap PO SCH (21:00)
[2024-06-13] MEDS ORDERED: HydrOXYzine Pamoate 50 MG Cap PO SCH (21:00)
[2024-06-14 00:19] VITALS: BP 89/60
[2024-06-14 04:29] VITALS: BP 82/58
[2024-06-14 04:58] LABS: BASOPHILS ABSOLUTE AUTO 0.02 K/mm3 (0.00-0.23); BASOPHILS PERCENT AUTO 0 % (0-2); EOSINOPHILS ABSOLUTE AUTO 0.01 K/mm3 (0.00-0.68); EOSINOPHILS PERCENT AUTO 0 % (0-6); Hemoglobin 10.7 g/dL (11.5-16.0); IMMATURE GRAN ABSOLUTE AUTO 0.03 K/mm3 (0.00-0.10); IMMATURE GRAN PERCENT AUTO 1 % (0-1); LYMPHOCYTES ABSOLUTE AUTO 2.01 K/mm3 (0.84-5.20); LYMPHOCYTES PERCENT AUTO 32 % (21-46); MONOCYTES ABSOLUTE AUTO 0.55 K/mm3 (0.16-1.47); MONOCYTES PERCENT AUTO 9 % (4-13); Mean Corpuscular HGB 29.2 pg (26.0-34.0); Mean Corpuscular HGB Conc 33.4 g/dL (31.5-36.5); Mean Corpuscular Volume 87 fL (80-100); Mean Platelet Volume 11.6 fL (9.1-12.4); NEUTROPHILS ABSOLUTE AUTO 3.68 K/mm3 (1.96-9.15); NEUTROPHILS PERCENT AUTO 58 % (41-73); Platelet Count 154 K/mm3 (150-400); RDW Coefficient Variation 15.6 % (11.7-14.2); RDW Standard Deviation 49.8 fL (35.1-46.3); Red Blood Cell Count 3.66 M/mm3 (3.80-5.20)
[2024-06-14 05:18] LABS: Albumin, Blood 2.8 g/dL (3.4-5.0); Bilirubin, Total 0.3 mg/dL (0.1-1.0); Bun/Creatinine Ratio 17.5 (12.0-20.0); Calcium, Blood 8.3 mg/dL (8.5-10.1); Creatinine, Blood 0.74 mg/dL (0.40-1.00); Globulin, Blood 2.7 g/dL (2.2-4.0); Potassium, Blood 3.4 mmol/L (3.5-5.5); Total Protein, Blood 5.5 g/dL (6.4-8.2)
--- NOTE | 2024-06-14 06:15 | NUR ---
PT'S BP SOFT OVERNIGHT SBP 78-83,PT ASYMPTOMATIC.PT GIVEN BENADRYL FOR ITCHING.PT'S DAUGHTER STAYED AT BEDSIDE OVERNIGHT.PATIENT MONITORED DURING THE SHIFT,NO IMMEADIATE CONCERNS NOTED.CALL LIGHT AND PT'S ITEMS WITHIN REACH.BED IN THE LOWEST POSITION.PT DENIES PAIN,DENIES NEEDS AT THIS TIME.
[2024-06-14 07:43] VITALS: BP 91/57
[2024-06-14] MEDS ORDERED: Potassium Chloride 20 MEQ TabCR PO ONE ×2 (09:00→11:30)
[2024-06-14] MEDS ORDERED: Fludrocortisone Acetate 0.1 MG Tab PO SCH (09:00)
[2024-06-14 09:13] LABS: ALDOSTERONE 4.9 ng/dL
[2024-06-14 11:45] VITALS: BP 106/70
[2024-06-14 16:50] VITALS: BP 104/71
--- NOTE | 2024-06-14 19:24 | NUR ---
SHIFT SUMMARY: A/O X4, PLEASANT AND COOPERATIVE WITH CARE, ANXIOUS AT BASELINE, ABLE TO COMMUNICATE NEEDS AND USES CALL LIGHT APPROPRIATELY, HX OF LEFT EYE DROOP BUT NOT OBSERVED ON THIS SHIFT, REMAINED SENSITIVE TO LIGHT IN LEFT EYE, DENIED DIZZINESS OR LIGHTHEADEDNESS THIS SHIFT. BRADYCARDIC WITH HRR FROM 30'S-90'S, COFFEE BROUGHT HR FROM 30'S TO 70'S, PG TO SUN. SAT >92% ON RA, MD MATA REQUESTED THAT NOC RN MONITOR O2 SAT FOR POSSIBLE DESAT WHILE SLEEPING. SBA 1, R HIP AND BACK PAIN, SCATTERED SCABS FROM FACE TO THIGHS. PT ENDORSES GOOD PAIN CONTROL WITH CHANGE IN MEDICATION PER EMAR. PATIENT IS ON PHONE WITH CALL LIGHT WITHIN REACH.
[2024-06-14 20:38] VITALS: BP 119/80
[2024-06-15 00:19] VITALS: BP 93/56
[2024-06-15 04:51] VITALS: BP 88/62
--- NOTE | 2024-06-15 07:33 | NUR ---
PATIENT MONITORED DURING THE SHIFT,NO IMMEDIATE CONCERN NOTED.PT REPORTS THAT SHE HAD A BETTER NIGHT SLEEP WITH PAIN WELL CONTROLLED WITH THE NEW MEDS.REPORT GIVEN TO DAYSHIFT NURSE FOR CONTINUITY OF CARE.CALL LIGHT AND PT'S ITEMS WITHIN REACH.
[2024-06-15 08:48] VITALS: BP 122/84
[2024-06-15] MEDS ORDERED: Potassium Chloride 20 MEQ TabCR PO ONE (09:00)
[2024-06-15] MEDS ORDERED: DOXY100 PO (11:23)
[2024-06-15] MEDS ORDERED: Acetaminophen650 M1 PO (11:23)
[2024-06-15] MEDS ORDERED: FLUDROCORTISON0.1 M1 PO (11:24)
[2024-06-15] MEDS ORDERED: MELATONIN5 M1 PO (11:24)
[2024-06-15] MEDS ORDERED: TRAM50 PO (11:25)
[2024-06-15 13:25] VITALS: BP 130/81
--- NOTE | 2024-06-15 13:37 | NUR ---
SHIFT SUMMARY PATIENT AOX4 DENIES CHEST PAIN OR SOB. SHE IS INDEPENDENT IN HER ROOM. HER VITALS ARE STABLE. SHE IS ABLE TO TOLERATE HER FOOD. SHE HAS HER CANE AT BEDSIDE TO DISCHARGE WITH. SHE WAS GIVEN HER DISCHARGE INSTRUCTIONS WITH MEDICATION INFO AND FOLLOWUP INFO. SHE AGREES AND UNDERSTANDS DISCHARGE INSTRUCTIONS AND HASA NO FURTHER QUESTIONS.
[2024-06-15 14:47] LABS: RENIN ACTIVITY 0.9 ng/mL/hr
== END 2024-06-15 15:11 | disposition home or self-care (01) | DRG 645 ==
LOC: ER 16:34 → ERHOLD 16:35 → PCU 16:35
PROVIDERS: Internal Medicine; Nurse Practitioner Acute Care; Student in an Organized Health Care Education/Training Program; ADMIT Internal Medicine
DX: E27.40 Unspecified adrenocortical insufficiency (principal); J45.909 Unspecified asthma, uncomplicated; R29.810 Facial weakness; M79.7 Fibromyalgia; G43.909 Migraine, unspecified, not intractable, without status migrainosus; I10 Essential (primary) hypertension; R00.1 Bradycardia, unspecified; E86.1 Hypovolemia; M25.551 Pain in right hip; E87.6 Hypokalemia; Z79.51 Long term (current) use of inhaled steroids; Z91.81 History of falling
CPT/HCPCS: 36415; 70450; 70551; 71046; 71260; 72100; 73502; 76770; 80053; 82024; 82088; 82533; 82947; 83605; 83735; 84145; 84443; 84484; 85025; 85379; 85610; 85730; 93005; 93010; 94640; 94664; 94760; 94762; 96360; 99285-25; A9270; G0378; J1720; J1885; J2405; J3010; J7030; J7120; Q9967

== ENCOUNTER 2024-07-14 14:48 | Emergency (ER) | payer OTHER ==
[~2024-07-14] VITALS: Ht 144.8 cm; Wt 58.1 kg
[~2024-07-14 14:48] MED LIST changes: +Acetaminophen650 M1 PO; +DOXY100 PO; +FLUDROCORTISON0.1 M1 PO; +HYDHCL25 PO; +MELATONIN5 M1 PO; +VENL25 PO; +VILAZODONE HCL10 MG PO
[2024-07-14 15:23] VITALS: BP 98/71
[2024-07-14] MEDS ORDERED: Acetaminophen 500 MG Tab PO ONE (15:25)
[2024-07-14] MEDS ORDERED: Ibuprofen 600 MG Tab PO ONE (15:25)
[2024-07-14] MEDS ORDERED: ACET500 PO (17:38)
[2024-07-14] MEDS ORDERED: IBUP600 PO (17:38)
== END 2024-07-14 18:04 | disposition home or self-care (01) ==
LOC: ER 14:48
DX: M25.551 Pain in right hip (principal); G43.909 Migraine, unspecified, not intractable, without status migrainosus; Z91.018 Allergy to other foods; Z79.51 Long term (current) use of inhaled steroids; Z79.899 Other long term (current) drug therapy
CPT/HCPCS: 73502; 73552; 99283-25; A9270

== ENCOUNTER 2024-10-09 16:11 | Emergency (ER) | payer OTHER ==
[~2024-10-09] VITALS: Ht 144.8 cm; Wt 63.5 kg
[~2024-10-09 16:11] MED LIST changes: +ACET500 PO
[2024-10-09 16:58] LABS: BASOPHILS ABSOLUTE AUTO 0.05 K/mm3 (0.00-0.23); BASOPHILS PERCENT AUTO 1 % (0-2); EOSINOPHILS ABSOLUTE AUTO 0.18 K/mm3 (0.00-0.68); EOSINOPHILS PERCENT AUTO 3 % (0-6); Hematocrit 41.9 % (33.0-51.0); Hemoglobin 13.8 g/dL (11.5-16.0); IMMATURE GRAN ABSOLUTE AUTO 0.01 K/mm3 (0.00-0.10); IMMATURE GRAN PERCENT AUTO 0 % (0-1); LYMPHOCYTES ABSOLUTE AUTO 2.64 K/mm3 (0.84-5.20); LYMPHOCYTES PERCENT AUTO 41 % (21-46); MONOCYTES ABSOLUTE AUTO 0.51 K/mm3 (0.16-1.47); MONOCYTES PERCENT AUTO 8 % (4-13); Mean Corpuscular HGB Conc 32.9 g/dL (31.5-36.5); Mean Corpuscular Volume 87 fL (80-100); NEUTROPHILS ABSOLUTE AUTO 3.02 K/mm3 (1.96-9.15); NEUTROPHILS PERCENT AUTO 47 % (41-73); NRBC ABSOLUTE 0.00 K/mm3 (0.00-0.02); NRBC Auto 0.0 /100 WBC (0.0-0.2); Platelet Count 239 K/mm3 (150-400); RDW Coefficient Variation 14.4 % (11.7-14.2); RDW Standard Deviation 46.1 fL (35.1-46.3)
[2024-10-09 17:24] LABS: Alanine Aminotransfer (ALT/SGP 25.0 U/L (12-78); Albumin, Blood 3.7 g/dL (3.4-5.0); Albumin/Globulin Ratio 0.9 (0.8-1.8); Anion Gap 8.0 mmol/L (3-11); Aspartate Aminotrans (AST/SGOT 32.0 U/L (12-37); Bilirubin, Total 0.6 mg/dL (0.1-1.0); Blood Urea Nitrogen 13.0 mg/dL (8-24); CO2, Blood 21.0 mmol/L (21-32); Calcium, Blood 8.7 mg/dL (8.5-10.1); Chloride, Blood 114.0 mmol/L (98-108); Creatinine, Blood 0.83 mg/dL (0.40-1.00); Globulin, Blood 4.0 g/dL (2.2-4.0); Glucose, Blood 87.0 mg/dL (70-99); Potassium, Blood 3.8 mmol/L (3.5-5.5); Prothrombin Time Results 11.2 Sec (9.7-11.5); Sodium, Blood 139.0 mmol/L (136-145); Total Protein, Blood 7.7 g/dL (6.4-8.2)
[2024-10-09 17:32] LABS: Source, Urine Clean Catch
[2024-10-09 17:52] LABS: Bilirubin, Urine Neg (Neg); Color, Urine Yellow (P-Yellow); Glucose Qualitative, Urine Neg (Neg); Ketones, Urine Neg (Neg); Leukocyte Esterase, Urine Neg (Neg); Protein, Urine 1+ (Neg); Specific Gravity, Urine 1.010 (1.003-1.022); Urobilinogen, Urine NORM (Normal)
[2024-10-09 21:47] VITALS: BP 118/70
[2024-10-09] MEDS ORDERED: RX Prepack 2 Tabs Ondansetron ODT 4MG UD ONE (22:25)
[2024-10-12] MEDS ORDERED: ONDA4ODT MM (09:16)
[2024-10-12] MEDS ORDERED: POLY500 PO (09:16)
[2024-10-12] MEDS ORDERED: OXAYDO5 M1 PO (09:16)
[2024-10-12] MEDS ORDERED: SENNA LAXATIVE8.6 MG PO (09:16)
== END 2024-10-09 22:32 | disposition home or self-care (01) ==
LOC: ER 16:11
PROVIDERS: Student in an Organized Health Care Education/Training Program
DX: K62.5 Hemorrhage of anus and rectum (principal); K52.9 Noninfective gastroenteritis and colitis, unspecified; J45.909 Unspecified asthma, uncomplicated; Z79.51 Long term (current) use of inhaled steroids; Z79.899 Other long term (current) drug therapy
CPT/HCPCS: 80053; 81025; 85025; 85610; 85730; 99283; A9270

== ENCOUNTER 2024-10-12 23:01 | Emergency (ER) | payer OTHER ==
[~2024-10-12] VITALS: Ht 144.8 cm; Wt 65.8 kg
[~2024-10-12 23:01] MED LIST changes: +OXAYDO5 M1 PO; +POLY500 PO; +SENNA LAXATIVE8.6 MG PO
[2024-10-12] MEDS ORDERED: Diazepam 5 MG / ML 2ML SYR IV ONE (23:30)
[2024-10-12] MEDS ORDERED: NS 1,000 ML IV SCH (23:30)
[2024-10-12 23:38] LABS: Source, Urine Clean Catch
[2024-10-12 23:41] LABS: Bilirubin, Urine Neg (Neg); Glucose Qualitative, Urine Neg (Neg); Ketones, Urine Neg (Neg); Leukocyte Esterase, Urine Neg (Neg); Protein, Urine Neg (Neg); Specific Gravity, Urine 1.005 (1.003-1.022); Urobilinogen, Urine NORM (Normal)
[2024-10-12 23:42] LABS: Color, Urine Pale Yellow (P-Yellow)
[2024-10-12 23:55] LABS: BASOPHILS ABSOLUTE AUTO 0.08 K/mm3 (0.00-0.23); BASOPHILS PERCENT AUTO 1 % (0-2); EOSINOPHILS ABSOLUTE AUTO 0.27 K/mm3 (0.00-0.68); EOSINOPHILS PERCENT AUTO 4 % (0-6); Hematocrit 36.8 % (33.0-51.0); Hemoglobin 12.2 g/dL (11.5-16.0); IMMATURE GRAN ABSOLUTE AUTO 0.01 K/mm3 (0.00-0.10); IMMATURE GRAN PERCENT AUTO 0 % (0-1); LYMPHOCYTES ABSOLUTE AUTO 3.19 K/mm3 (0.84-5.20); LYMPHOCYTES PERCENT AUTO 44 % (21-46); MONOCYTES ABSOLUTE AUTO 0.55 K/mm3 (0.16-1.47); MONOCYTES PERCENT AUTO 8 % (4-13); Mean Corpuscular HGB Conc 33.2 g/dL (31.5-36.5); Mean Corpuscular Volume 88 fL (80-100); NEUTROPHILS ABSOLUTE AUTO 3.19 K/mm3 (1.96-9.15); NEUTROPHILS PERCENT AUTO 44 % (41-73); NRBC ABSOLUTE 0.00 K/mm3 (0.00-0.02); NRBC Auto 0.0 /100 WBC (0.0-0.2); Platelet Count 186 K/mm3 (150-400); RDW Coefficient Variation 14.3 % (11.7-14.2); RDW Standard Deviation 45.8 fL (35.1-46.3)
[2024-10-13 00:12] LABS: Alanine Aminotransfer (ALT/SGP 20.0 U/L (12-78); Albumin, Blood 3.2 g/dL (3.4-5.0); Albumin/Globulin Ratio 1.0 (0.8-1.8); Anion Gap 10.0 mmol/L (3-11); Aspartate Aminotrans (AST/SGOT 16.0 U/L (12-37); Bilirubin, Total 0.2 mg/dL (0.1-1.0); Blood Urea Nitrogen 9.0 mg/dL (8-24); CO2, Blood 21.0 mmol/L (21-32); Calcium, Blood 8.2 mg/dL (8.5-10.1); Chloride, Blood 116.0 mmol/L (98-108); Creatinine, Blood 0.75 mg/dL (0.40-1.00); Globulin, Blood 3.2 g/dL (2.2-4.0); Glucose, Blood 79.0 mg/dL (70-99); Potassium, Blood 3.4 mmol/L (3.5-5.5); Sodium, Blood 144.0 mmol/L (136-145); Total Protein, Blood 6.4 g/dL (6.4-8.2)
[2024-10-13] MEDS ORDERED: Potassium Chloride 10 Meq Tablet SA PO ONE (00:20)
[2024-10-13 03:05] VITALS: BP 120/65
== END 2024-10-13 03:04 | disposition home or self-care (01) ==
LOC: ER 23:01
PROVIDERS: Emergency Medicine
DX: R10.2 Pelvic and perineal pain (principal); E86.0 Dehydration; E87.6 Hypokalemia; J45.909 Unspecified asthma, uncomplicated; N81.6 Rectocele; R20.2 Paresthesia of skin; R15.9 Full incontinence of feces; G43.909 Migraine, unspecified, not intractable, without status migrainosus; Z59.89 Other problems related to housing and economic circumstances; Z88.8 Allergy status to other drugs, medicaments and biological substances; Z79.2 Long term (current) use of antibiotics; Z79.899 Other long term (current) drug therapy
CPT/HCPCS: 72158; 74177; 80053; 81003; 85025; 96361; 96374; 96374-59; 99284; 99284-25; A9270; A9579; J1885; J3360; J7030; Q9967

== ENCOUNTER 2024-11-06 16:24 | Emergency (ER) | payer OTHER ==
[~2024-11-06] VITALS: Ht 142.2 cm; Wt 63.5 kg
[2024-11-06 17:16] LABS: BASOPHILS ABSOLUTE AUTO 0.06 K/mm3 (0.00-0.23); BASOPHILS PERCENT AUTO 1 % (0-2); EOSINOPHILS ABSOLUTE AUTO 0.16 K/mm3 (0.00-0.68); EOSINOPHILS PERCENT AUTO 2 % (0-6); Hematocrit 42.6 % (33.0-51.0); Hemoglobin 14.7 g/dL (11.5-16.0); IMMATURE GRAN ABSOLUTE AUTO 0.02 K/mm3 (0.00-0.10); IMMATURE GRAN PERCENT AUTO 0 % (0-1); LYMPHOCYTES ABSOLUTE AUTO 2.85 K/mm3 (0.84-5.20); LYMPHOCYTES PERCENT AUTO 32 % (21-46); MONOCYTES ABSOLUTE AUTO 0.55 K/mm3 (0.16-1.47); MONOCYTES PERCENT AUTO 6 % (4-13); Mean Corpuscular HGB Conc 34.5 g/dL (31.5-36.5); Mean Corpuscular Volume 85 fL (80-100); NEUTROPHILS ABSOLUTE AUTO 5.21 K/mm3 (1.96-9.15); NEUTROPHILS PERCENT AUTO 59 % (41-73); NRBC ABSOLUTE 0.00 K/mm3 (0.00-0.02); NRBC Auto 0.0 /100 WBC (0.0-0.2); Platelet Count 245 K/mm3 (150-400); RDW Coefficient Variation 14.0 % (11.7-14.2); RDW Standard Deviation 42.9 fL (35.1-46.3)
[2024-11-06 17:49] LABS: Alanine Aminotransfer (ALT/SGP 21.0 U/L (12-78); Albumin, Blood 3.9 g/dL (3.4-5.0); Albumin/Globulin Ratio 1.0 (0.8-1.8); Anion Gap 6.0 mmol/L (3-11); Aspartate Aminotrans (AST/SGOT 17.0 U/L (12-37); Bilirubin, Total 0.4 mg/dL (0.1-1.0); Blood Urea Nitrogen 12.0 mg/dL (8-24); CO2, Blood 22.0 mmol/L (21-32); Calcium, Blood 9.1 mg/dL (8.5-10.1); Chloride, Blood 112.0 mmol/L (98-108); Creatinine, Blood 0.82 mg/dL (0.40-1.00); Globulin, Blood 3.9 g/dL (2.2-4.0); Glucose, Blood 85.0 mg/dL (70-99); Potassium, Blood 3.4 mmol/L (3.5-5.5); Sodium, Blood 137.0 mmol/L (136-145); Total Protein, Blood 7.8 g/dL (6.4-8.2)
[2024-11-06 20:05] VITALS: BP 106/66
== END 2024-11-06 20:05 | disposition home or self-care (01) ==
LOC: ER 16:24
PROVIDERS: Student in an Organized Health Care Education/Training Program
DX: N20.0 Calculus of kidney (principal); E87.6 Hypokalemia; J45.909 Unspecified asthma, uncomplicated; Z79.899 Other long term (current) drug therapy; Z88.8 Allergy status to other drugs, medicaments and biological substances
CPT/HCPCS: 74177; 80053; 82272; 83690; 85025; 99284-25; Q9967

== ENCOUNTER 2024-11-12 12:38 | Emergency (ER) | payer OTHER ==
[~2024-11-12] VITALS: Ht 142.2 cm; Wt 63.5 kg
[2024-11-12] MEDS ORDERED: Ondansetron HCl 2 MG / ML 2ML Vial IV ONE (12:50)
[2024-11-12] MEDS ORDERED: FentaNYL Citrate 50 MCG/ML 2 ML Injection IV ONE (12:50)
[2024-11-12 13:22] LABS: BASOPHILS ABSOLUTE AUTO 0.05 K/mm3 (0.00-0.23); BASOPHILS PERCENT AUTO 1 % (0-2); EOSINOPHILS ABSOLUTE AUTO 0.17 K/mm3 (0.00-0.68); EOSINOPHILS PERCENT AUTO 3 % (0-6); Hematocrit 42.4 % (33.0-51.0); Hemoglobin 14.1 g/dL (11.5-16.0); IMMATURE GRAN ABSOLUTE AUTO 0.01 K/mm3 (0.00-0.10); IMMATURE GRAN PERCENT AUTO 0 % (0-1); LYMPHOCYTES ABSOLUTE AUTO 2.34 K/mm3 (0.84-5.20); LYMPHOCYTES PERCENT AUTO 43 % (21-46); MONOCYTES ABSOLUTE AUTO 0.36 K/mm3 (0.16-1.47); MONOCYTES PERCENT AUTO 7 % (4-13); Mean Corpuscular HGB Conc 33.3 g/dL (31.5-36.5); Mean Corpuscular Volume 88 fL (80-100); NEUTROPHILS ABSOLUTE AUTO 2.53 K/mm3 (1.96-9.15); NEUTROPHILS PERCENT AUTO 46 % (41-73); NRBC ABSOLUTE 0.00 K/mm3 (0.00-0.02); NRBC Auto 0.0 /100 WBC (0.0-0.2); Platelet Count 213 K/mm3 (150-400); RDW Coefficient Variation 14.2 % (11.7-14.2); RDW Standard Deviation 45.6 fL (35.1-46.3)
[2024-11-12 13:45] LABS: Alanine Aminotransfer (ALT/SGP 29.0 U/L (12-78); Albumin, Blood 3.5 g/dL (3.4-5.0); Albumin/Globulin Ratio 1.0 (0.8-1.8); Anion Gap 7.0 mmol/L (3-11); Aspartate Aminotrans (AST/SGOT 19.0 U/L (12-37); Bilirubin, Total 0.4 mg/dL (0.1-1.0); Blood Urea Nitrogen 12.0 mg/dL (8-24); CO2, Blood 24.0 mmol/L (21-32); Calcium, Blood 8.4 mg/dL (8.5-10.1); Chloride, Blood 110.0 mmol/L (98-108); Creatinine, Blood 0.9 mg/dL (0.40-1.00); Globulin, Blood 3.4 g/dL (2.2-4.0); Glucose, Blood 91.0 mg/dL (70-99); Potassium, Blood 4.2 mmol/L (3.5-5.5); Sodium, Blood 137.0 mmol/L (136-145); Total Protein, Blood 6.9 g/dL (6.4-8.2)
[2024-11-12 15:33] VITALS: BP 121/72
[2024-11-12] MEDS ORDERED: Ketorolac Tromethamine 15mg Vial IV ONE (16:05)
== END 2024-11-12 16:20 | disposition home or self-care (01) ==
LOC: ER 12:38
PROVIDERS: Emergency Medicine
DX: R10.11 Right upper quadrant pain (principal); J45.909 Unspecified asthma, uncomplicated; Z88.8 Allergy status to other drugs, medicaments and biological substances; Z79.899 Other long term (current) drug therapy
CPT/HCPCS: 80053; 83690; 85025; 93005; 93010; 99284-25

== ENCOUNTER 2024-12-16 11:52 | Emergency (ER) | payer OTHER ==
[~2024-12-16] VITALS: Ht 144.8 cm; Wt 61.2 kg
[2024-12-16 13:46] LABS: BASOPHILS ABSOLUTE AUTO 0.04 K/mm3 (0.00-0.23); BASOPHILS PERCENT AUTO 1 % (0-2); EOSINOPHILS ABSOLUTE AUTO 0.16 K/mm3 (0.00-0.68); EOSINOPHILS PERCENT AUTO 3 % (0-6); Hematocrit 41.8 % (33.0-51.0); Hemoglobin 14.1 g/dL (11.5-16.0); IMMATURE GRAN ABSOLUTE AUTO 0.02 K/mm3 (0.00-0.10); IMMATURE GRAN PERCENT AUTO 0 % (0-1); LYMPHOCYTES ABSOLUTE AUTO 2.28 K/mm3 (0.84-5.20); LYMPHOCYTES PERCENT AUTO 39 % (21-46); MONOCYTES ABSOLUTE AUTO 0.34 K/mm3 (0.16-1.47); MONOCYTES PERCENT AUTO 6 % (4-13); Mean Corpuscular HGB Conc 33.7 g/dL (31.5-36.5); Mean Corpuscular Volume 88 fL (80-100); NEUTROPHILS ABSOLUTE AUTO 2.94 K/mm3 (1.96-9.15); NEUTROPHILS PERCENT AUTO 51 % (41-73); NRBC ABSOLUTE 0.00 K/mm3 (0.00-0.02); NRBC Auto 0.0 /100 WBC (0.0-0.2); Platelet Count 228 K/mm3 (150-400); RDW Coefficient Variation 14.4 % (11.7-14.2); RDW Standard Deviation 46.7 fL (35.1-46.3)
[2024-12-16 14:22] LABS: Alanine Aminotransfer (ALT/SGP 25.0 U/L (12-78); Albumin, Blood 3.8 g/dL (3.4-5.0); Albumin/Globulin Ratio 1.1 (0.8-1.8); Anion Gap 7.0 mmol/L (3-11); Aspartate Aminotrans (AST/SGOT 9.0 U/L (12-37); Bilirubin, Total 0.4 mg/dL (0.1-1.0); Blood Urea Nitrogen 17.0 mg/dL (8-24); CO2, Blood 23.0 mmol/L (21-32); Calcium, Blood 8.9 mg/dL (8.5-10.1); Chloride, Blood 113.0 mmol/L (98-108); Creatinine, Blood 0.87 mg/dL (0.40-1.00); Globulin, Blood 3.6 g/dL (2.2-4.0); Glucose, Blood 86.0 mg/dL (70-99); Potassium, Blood 4.0 mmol/L (3.5-5.5); Sodium, Blood 139.0 mmol/L (136-145); Total Protein, Blood 7.4 g/dL (6.4-8.2)
[2024-12-16] MEDS ORDERED: Morphine Sulfate 4 MG/1 ML Injection IV ONE (17:50)
[2024-12-16 21:36] VITALS: BP 113/67
== END 2024-12-16 21:46 | disposition home or self-care (01) ==
LOC: ER 11:52
PROVIDERS: Emergency Medicine
DX: K62.5 Hemorrhage of anus and rectum (principal); N20.0 Calculus of kidney; Z88.8 Allergy status to other drugs, medicaments and biological substances; Z79.899 Other long term (current) drug therapy; J45.909 Unspecified asthma, uncomplicated
CPT/HCPCS: 74177; 80053; 84484; 84703; 85025; 86850; 86900; 86901; 93005; 93010; 96374-59; 99284-25; A9270; J2270; Q9967

== ENCOUNTER 2024-12-21 13:27 | Emergency (ER) | payer OTHER ==
[~2024-12-21] VITALS: Ht 160 cm; Wt 72.6 kg
[2024-12-21 16:20] LABS: BASOPHILS ABSOLUTE AUTO 0.05 K/mm3 (0.00-0.23); BASOPHILS PERCENT AUTO 1 % (0-2); EOSINOPHILS ABSOLUTE AUTO 0.17 K/mm3 (0.00-0.68); EOSINOPHILS PERCENT AUTO 3 % (0-6); Hematocrit 41.4 % (33.0-51.0); Hemoglobin 13.8 g/dL (11.5-16.0); IMMATURE GRAN ABSOLUTE AUTO 0.01 K/mm3 (0.00-0.10); IMMATURE GRAN PERCENT AUTO 0 % (0-1); LYMPHOCYTES ABSOLUTE AUTO 2.71 K/mm3 (0.84-5.20); LYMPHOCYTES PERCENT AUTO 43 % (21-46); MONOCYTES ABSOLUTE AUTO 0.41 K/mm3 (0.16-1.47); MONOCYTES PERCENT AUTO 6 % (4-13); Mean Corpuscular HGB Conc 33.3 g/dL (31.5-36.5); Mean Corpuscular Volume 89 fL (80-100); NEUTROPHILS ABSOLUTE AUTO 3.03 K/mm3 (1.96-9.15); NEUTROPHILS PERCENT AUTO 47 % (41-73); NRBC ABSOLUTE 0.00 K/mm3 (0.00-0.02); NRBC Auto 0.0 /100 WBC (0.0-0.2); Platelet Count 213 K/mm3 (150-400); RDW Coefficient Variation 14.3 % (11.7-14.2); RDW Standard Deviation 46.0 fL (35.1-46.3)
[2024-12-21 16:47] LABS: Alanine Aminotransfer (ALT/SGP 33.0 U/L (12-78); Albumin, Blood 3.8 g/dL (3.4-5.0); Albumin/Globulin Ratio 1.2 (0.8-1.8); Anion Gap 4.0 mmol/L (3-11); Aspartate Aminotrans (AST/SGOT 18.0 U/L (12-37); Bilirubin, Total 0.2 mg/dL (0.1-1.0); Blood Urea Nitrogen 14.0 mg/dL (8-24); CO2, Blood 23.0 mmol/L (21-32); Calcium, Blood 8.9 mg/dL (8.5-10.1); Chloride, Blood 115.0 mmol/L (98-108); Creatinine, Blood 0.86 mg/dL (0.40-1.00); Globulin, Blood 3.2 g/dL (2.2-4.0); Glucose, Blood 87.0 mg/dL (70-99); Potassium, Blood 3.8 mmol/L (3.5-5.5); Sodium, Blood 138.0 mmol/L (136-145); Total Protein, Blood 7.0 g/dL (6.4-8.2)
[2024-12-21 18:01] VITALS: BP 112/78
== END 2024-12-21 18:01 | disposition home or self-care (01) ==
LOC: ER 13:27
PROVIDERS: Emergency Medicine
DX: K52.9 Noninfective gastroenteritis and colitis, unspecified (principal); J45.909 Unspecified asthma, uncomplicated; Z91.018 Allergy to other foods; Z79.51 Long term (current) use of inhaled steroids; Z79.899 Other long term (current) drug therapy
CPT/HCPCS: 80053; 83690; 84703; 85025; 99283; A9270

== ENCOUNTER → 2025-01-15 | Outpatient (CLI) | payer OTHER ==
[2025-01-21 14:10] LABS: Stool Occult Bld Immuno 1 Negative (NEGATIVE)
== END ==
LOC: LAB SHORT 11:36 → LAB 11:36 → LAB SHORT 01-20 11:33
PROVIDERS: Nurse Practitioner Family
DX: K62.5 Hemorrhage of anus and rectum (principal)
CPT/HCPCS: G0328